=== PATIENT | female | born 1950 | race Caucasian/White ===

== ENCOUNTER 2019-03-19 23:26 | Inpatient (IN) | payer MEDICARE, OTHER ==
[2019-03-19] MEDS ORDERED: ALBUTEROL NEBULIZED 2.5 MG/3 ML INHALATION STA (23:48)
[2019-03-19] MEDS ORDERED: SODIUM CHLORIDE 0.9% 1,000 ML IV STA (23:48)
[2019-03-19] MEDS ORDERED: methylPREDNISolone SOD SUCCI 125 MG/2 ML VIAL IV STA (23:48)
[2019-03-19] MEDS ORDERED: IPRATROPIUM 0.5 MG/2.5 ML NEBU INHALATION STA (23:48)
--- NOTE | 2019-03-20 00:07 | XR ---
EXAMINATION TYPE: XR chest 1V portable DATE OF EXAM: 03/19/2019 COMPARISON: NONE HISTORY: Short of breath TECHNIQUE: FINDINGS: Heart is enlarged. There is pulmonary vascular congestion. There is slight blunting of the costophrenic angles. IMPRESSION: Mild congestive heart failure. Atheromatous aorta.
[2019-03-20 00:11] LABS: Anisocytosis Slight; HGB 12.4 gm/dL (11.4-16.0); Hypochromasia Slight; MCH 29.1 pg (25.0-35.0); MCHC 31.9 g/dL (31.0-37.0); Mean Platelet Volume 7.4; Platelet Count 123 k/uL (150-450); RBC 4.28 m/uL (3.80-5.40); RDW 16.6 % (11.5-15.5); WBC 9.8 k/uL (3.8-10.6)
--- NOTE | 2019-03-20 00:18 | ED ---
SOB HPI - General Chief Complaint: Shortness of Breath Stated Complaint: SOB Time Seen by Provider: 03/19/19 23:28 Source: patient, EMS, RN notes reviewed, old records reviewed Mode of arrival: EMS - History of Present Illness Initial Comments: This is a 68-year-old female is a poor story presents with family members over concern for activity at home. They did find patient to have low oxygen per EMS when EMS to arrive, daughter lives the patient states patient was not acting appropriately. Patient is a poor historian history obtained from EMS patient's family MD Complaint: shortness of breath, cough, "asthma attack", anxiety -: minutes(s) Severity: severe Severity scale (1-10): 10 Consistency: constant Improves With: nothing Worsens With: nothing Known History Of: COPD, congestive heart failure, recurrent pneumonia Context: recent URI Associated Symptoms: cough, sputum production, palpitations, syncope Treatments Prior to Arrival: none - Related Data Home Medications Medication Instructions Recorded Confirmed ALPRAZolam [Xanax] 0.25 mg PO TID 09/20/14 03/20/19 Albuterol Inhaler [Ventolin 2 puff INHALATION RT-Q6H PRN 09/20/14 03/20/19 Inhaler] Budesonide-Formot 160-4.5 Mcg 2 puff INHALATION RT-BID 09/20/14 03/20/19 [Symbicort 160-4.5 Mcg Inhaler] Losartan Potassium [Cozaar] 50 mg PO DAILY 09/20/14 03/20/19 Albuterol Nebulized [Ventolin 2.5 mg INHALATION RT-QID PRN 03/20/19 03/20/19 Nebulized] Atorvastatin [Lipitor] 40 mg PO DAILY 03/20/19 03/20/19 Fluticasone Nasal [place] [Flonase 1 spray EA NOSTRIL BID 03/20/19 03/20/19 Nasal [place]] Furosemide [Lasix] 40 mg PO BID 03/20/19 03/20/19 Gabapentin 1,200 mg PO BID 03/20/19 03/20/19 Insulin Glargine,Hum.rec.anlog 42 unit SQ BID 03/20/19 03/20/19 [Basaglar Kwikpen U-100] Levothyroxine Sodium 100 mcg PO DAILY 03/20/19 03/20/19 Metoprolol Succinate [Toprol XL] 200 mg PO DAILY 03/20/19 03/20/19 Multivitamins, Thera [Multivitamin 1 tab PO DAILY 03/20/19 03/20/19 (formulary)] Potassium Chloride ER [K-Dur 20] 20 meq PO DAILY 03/20/19 03/20/19 Rivaroxaban [Xarelto] 20 mg PO DAILY 03/20/19 03/20/19 Tafinlar 75mg Cap 150 mg PO BID 03/20/19 03/20/19 Trametinib Dimethyl Sulfoxide 2 mg PO DAILY 03/20/19 03/20/19 [Mekinist] Umeclidinium [place] [Incruse 1 puff INHALATION RT-DAILY 03/20/19 03/20/19 Ellipta] metFORMIN HCL 1,000 mg PO BID 03/20/19 03/20/19 Allergies Allergy/AdvReac Type Severity Reaction Status Date / Time No Known Allergies Allergy Verified 03/20/19 10:15 Review of Systems ROS Statement: Those systems with pertinent positive or pertinent negative responses have been documented in the HPI. ROS Other: All systems not noted in ROS Statement are negative. Past Medical History Past Medical History: COPD, Diabetes Mellitus, Hypertension, Thyroid Disorder Additional Past Medical History / Comment(s): myeloma- targeted chemo, immunotherapy, Graves dx History of Any Multi-Drug Resistant Organisms: None Reported Past Surgical History: Tubal Ligation Additional Past Surgical History / Comment(s): removal of melanoma x2 Past Psychological History: No Psychological Hx Reported Smoking Status: Former smoker Past Alcohol Use History: None Reported Past Drug Use History: None Reported General Exam General appearance: alert, in no apparent distress Head exam: Present: atraumatic, normocephalic, normal inspection Eye exam: Present: normal appearance, PERRL, EOMI. Absent: scleral icterus, conjunctival injection, periorbital swelling ENT exam: Present: normal exam, mucous membranes moist Neck exam: Present: normal inspection. Absent: tenderness, meningismus, lymphadenopathy Respiratory exam: Present: respiratory distress, wheezes, accessory muscle use, decreased breath sounds, prolonged expiratory. Absent: rales, rhonchi, stridor Cardiovascular Exam: Present: regular rate, normal rhythm, normal heart sounds. Absent: systolic murmur, diastolic murmur, rubs, gallop, clicks GI/Abdominal exam: Present: soft, normal bowel sounds. Absent: distended, tenderness, guarding, rebound, rigid Extremities exam: Present: normal inspection, full ROM, normal capillary refill. Absent: tenderness, pedal edema, joint swelling, calf tenderness Back exam: Present: normal inspection Neurological exam: Present: alert, oriented X3, CN II-XII intact Psychiatric exam: Present: normal affect, normal mood Skin exam: Present: warm, dry, intact, normal color. Absent: rash Course Vital Signs 03/19/19 03/19/19 03/20/19 23:34 23:40 00:03 Temperature 98.5 F Pulse Rate 100 86 Respiratory 26 H 26 H Rate Blood Pressure 101/62 O2 Sat by Pulse 90 L Oximetry 03/20/19 03/20/19 00:18 00:43 Temperature Pulse Rate 102 H 99 Respiratory Rate Blood Pressure O2 Sat by Pulse Oximetry - Reevaluation(s) Reevaluation #1: Medical records reviewed patient is improved here with IV hydration fluid resuscitation, breathing treatments Patient remains poor historian - Consultations Consultation #1: spoke w Dr Viet bhatti for admission Medical Decision Making - Medical Decision Making 68 female to the ER for evaluation significant shortness of breath. Pt also with confusion, and Weakness hypoxia with COPD and CHF. Will admit for diuresis breathing treatments monitoring of cardiopulmonary status - Lab Data Result diagrams: 03/22/19 07:13 03/22/19 07:13 Lab Results 03/19/19 03/20/19 03/20/19 Range/Units 10:07 00:00 00:00 WBC 9.8 (3.8-10.6) k/uL RBC 4.28 (3.80-5.40) m/uL Hgb 12.4 (11.4-16.0) gm/dL Hct 39.0 (34.0-46.0) % MCV 91.0 (80.0-100.0) fL MCH 29.1 (25.0-35.0) pg MCHC 31.9 (31.0-37.0) g/dL RDW 16.6 H (11.5-15.5) % Plt Count 123 L (150-450) k/uL Neutrophils % (Manual) 74 % Band Neutrophils % 22 % Lymphocytes % (Manual) 2 % Monocytes % (Manual) 2 % Neutrophils # (Manual) 9.40 H (1.3-7.7) k/uL Lymphocytes # (Manual) 0.20 L (1.0-4.8) k/uL Monocytes # (Manual) 0.20 (0-1.0) k/uL Nucleated RBCs 0 (0-0) /100 WBC Manual Slide Review Performed Hypochromasia Slight Anisocytosis Slight PT (9.0-12.0) sec INR (<1.2) APTT (22.0-30.0) sec Sodium 136 L (137-145) mmol/L Potassium 3.5 (3.5-5.1) mmol/L Chloride 98 (98-107) mmol/L Carbon Dioxide 32 H (22-30) mmol/L Anion Gap 6 mmol/L BUN 29 H (7-17) mg/dL Creatinine 0.90 (0.52-1.04) mg/dL Est GFR (CKD-EPI)AfAm 77 (>60 ml/min/1.73 sqM) Est GFR (CKD-EPI)NonAf 67 (>60 ml/min/1.73 sqM) Glucose 320 H (74-99) mg/dL Calcium 8.7 (8.4-10.2) mg/dL Magnesium 1.2 L (1.6-2.3) mg/dL Total Bilirubin 0.5 (0.2-1.3) mg/dL AST 35 (14-36) U/L ALT 25 (4-34) U/L Alkaline Phosphatase 59 (38-126) U/L Troponin I (0.000-0.034) ng/mL NT-Pro-B Natriuret Pep pg/mL Total Protein 5.8 L (6.3-8.2) g/dL Albumin 3.2 L (3.5-5.0) g/dL Urine Opiates Screen Not Detected (NotDetected) Ur Oxycodone Screen Not Detected (NotDetected) Urine Methadone Screen Not Detected (NotDetected) Ur Propoxyphene Screen Not Detected (NotDetected) Ur Barbiturates Screen Not Detected (NotDetected) U Tricyclic Antidepress Not Detected (NotDetected) Ur Phencyclidine Scrn Not Detected (NotDetected) Ur Amphetamines Screen Not Detected (NotDetected) U Methamphetamines Scrn Not Detected (NotDetected) U Benzodiazepines Scrn Not Detected (NotDetected) Urine Cocaine Screen Not Detected (NotDetected) U Marijuana (THC) Screen Not Detected (NotDetected) 03/20/19 03/20/19 03/20/19 Range/Units 00:00 00:00 00:00 WBC (3.8-10.6) k/uL RBC (3.80-5.40) m/uL Hgb (11.4-16.0) gm/dL Hct (34.0-46.0) % MCV (80.0-100.0) fL MCH (25.0-35.0) pg MCHC (31.0-37.0) g/dL RDW (11.5-15.5) % Plt Count (150-450) k/uL Neutrophils % (Manual) % Band Neutrophils % % Lymphocytes % (Manual) % Monocytes % (Manual) % Neutrophils # (Manual) (1.3-7.7) k/uL Lymphocytes # (Manual) (1.0-4.8) k/uL Monocytes # (Manual) (0-1.0) k/uL Nucleated RBCs (0-0) /100 WBC Manual Slide Review Hypochromasia Anisocytosis PT 11.0 (9.0-12.0) sec INR 1.1 (<1.2) APTT 24.2 (22.0-30.0) sec Sodium (137-145) mmol/L Potassium (3.5-5.1) mmol/L Chloride (98-107) mmol/L Carbon Dioxide (22-30) mmol/L Anion Gap mmol/L BUN (7-17) mg/dL Creatinine (0.52-1.04) mg/dL Est GFR (CKD-EPI)AfAm (>60 ml/min/1.73 sqM) Est GFR (CKD-EPI)NonAf (>60 ml/min/1.73 sqM) Glucose (74-99) mg/dL Calcium (8.4-10.2) mg/dL Magnesium (1.6-2.3) mg/dL Total Bilirubin (0.2-1.3) mg/dL AST (14-36) U/L ALT (4-34) U/L Alkaline Phosphatase (38-126) U/L Troponin I <0.012 (0.000-0.034) ng/mL NT-Pro-B Natriuret Pep 920 pg/mL Total Protein (6.3-8.2) g/dL Albumin (3.5-5.0) g/dL Urine Opiates Screen (NotDetected) Ur Oxycodone Screen (NotDetected) Urine Methadone Screen (NotDetected) Ur Propoxyphene Screen (NotDetected) Ur Barbiturates Screen (NotDetected) U Tricyclic Antidepress (NotDetected) Ur Phencyclidine Scrn (NotDetected) Ur Amphetamines Screen (NotDetected) U Methamphetamines Scrn (NotDetected) U Benzodiazepines Scrn (NotDetected) Urine Cocaine Screen (NotDetected) U Marijuana (THC) Screen (NotDetected) - EKG Data -: EKG Interpreted by Me (EKG shows A. fib rate of 113, QRS 90, QTC 477) - Radiology Data Radiology results: report reviewed (Chest x-ray does show CHF), image reviewed Critical Care Time Critical Care Time: Yes Total Critical Care Time: 31 Disposition Clinical Impression: Acute exacerbation of chronic obstructive pulmonary disease, Acute pulmonary edema, Congestive heart failure, Hypoxia Disposition: ADMITTED IP TO THIS HOSP Condition: Fair Is patient prescribed a controlled substance at d/c from ED?: No
[2019-03-20 00:21] LABS: Albumin 3.2 g/dL (3.5-5.0); Calcium 8.7 mg/dL (8.4-10.2); Magnesium 1.2 mg/dL (1.6-2.3); Potassium 3.5 mmol/L (3.5-5.1); Total Bilirubin 0.5 mg/dL (0.2-1.3); Total Protein 5.8 g/dL (6.3-8.2)
[2019-03-20 00:22] LABS: INR 1.1 (<1.2); Partial Thromboplastin Time 24.2 sec (22.0-30.0)
[2019-03-20 00:35] LABS: Band Neutrophils % 22 %; Neutrophils % (M) 74 %; Nucleated Red Blood Cells 0 /100 WBC (0-0); Total Cells Counted 100
[2019-03-20] MEDS ORDERED: IPRATROPIUM-ALBUTEROL 3 ML NEB INHALATION PRN (00:44)
[2019-03-20] MEDS: FUROSEMIDE 10 MG/ML 4 ML VIAL IV SCH ×2 (01:15→15:38)
[2019-03-20] MEDS: methylPREDNISolone SOD SUCCI 125 MG/2 ML VIAL IV SCH ×2 (05:49→12:23)
[2019-03-20] MEDS: ALBUTEROL NEBULIZED 2.5 MG/3 ML INHALATION SCH ×5 (08:04→20:37)
[2019-03-20] MEDS: SODIUM CHLORIDE 0.9% 1,000 ML IV SCH ×2 (08:33→12:26)
[2019-03-20] MEDS ORDERED: ENOXAPARIN 40 MG/0.4 ML SYRINGE SQ SCH (09:00)
[2019-03-20] MEDS ORDERED: SYMBICORT 160-4.5 MCG INHALER INHALATION SCH (11:00)
[2019-03-20] MEDS ORDERED: TAFINLAR 75 MG PO SCH (11:15)
[2019-03-20] MEDS ORDERED: Trametinib Dimethyl Sulfoxide [Mekinist] PO SCH (11:15)
[2019-03-20 11:42] LABS: Glucose,Whole Blood 454 mg/dL (75-99)
[2019-03-20 11:59] VITALS: BMI 43.9
[2019-03-20] MEDS: INSULIN ASPART (NovoLOG) 100 UNIT/ML VIAL SQ SCH ×3 (12:24→21:19)
[2019-03-20] MEDS: metFORMIN 500 MG TAB PO SCH ×2 (12:25→17:13)
[2019-03-20] MEDS: LOSARTAN 50 MG TAB PO SCH (12:25)
[2019-03-20] MEDS: METOPROLOL SUCCINATE (ER) 100 MG TAB.ER.24H PO SCH (12:25)
[2019-03-20] MEDS: POTASSIUM CHLORIDE ER 20 MEQ TAB.ER PO SCH (12:26)
[2019-03-20] MEDS: ATORVASTATIN 40 MG TAB PO SCH (12:26)
[2019-03-20] MEDS: GABAPENTIN 400 MG CAP PO SCH ×2 (12:26→21:21)
[2019-03-20 13:09] LABS: Amphetamine Screen,Urine Not Detected (NotDetected); Barbiturate Screen,Urine Not Detected (NotDetected); Benzodiazepines Screen,Urine Not Detected (NotDetected); Cocaine Screen,Urine Not Detected (NotDetected); Methadone Screen, Urine Not Detected (NotDetected); Opiate Screen,Urine Not Detected (NotDetected); Oxycodone Screen, Urine Not Detected (NotDetected); Phencyclidine Screen,Urine Not Detected (NotDetected); Tricyclic Antidepressant,Urine Not Detected (NotDetected); Urn Cannabinoid Scrn Not Detected (NotDetected)
[2019-03-20] MEDS: INSULIN DETEMIR (LEVEMIR) 100 UNIT/ML SYR SQ SCH ×2 (14:22→21:22)
[2019-03-20] MEDS: TAFINLAR 75 MG PO SCH (15:36)
[2019-03-20] MEDS: RIVAROXABAN 20 MG TAB PO SCH (15:38)
--- NOTE | 2019-03-20 15:54 | P.HPIM ---
History of Present Illness H&P Date: 03/20/19 Chief Complaint: Acute confusion History of presenting complaint: This is a pleasant 68-year-old patient of Dr. Hank Lloyd. Most of the history is obtained by the daughter the bedside. 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 Patient has a diagnosis for 9 years with recent spread to the irene gs.. Patient is on medication for the same.. She follows with Dr. DAVILA at [facility]. Patient had taken out for lunch yesterday and left the patient at home at 4:45 PM. And she came home around 10:00 PM she found that the bathroom door was open and patient is oxygen nasal cannula lying on the floor. She came to the bedroom and found everything was helter-skelter. And patient was sitting in a T-shirt at the edge of the bed short of breath confused. Patient had complained of feeling warm and cold. She was without her oxygen. She also noticed that patient's right leg was somewhat red and tender. 911 was called. Patient still remained somewhat delirious. Tired. Review of systems: GEN.: Warm and chills EYES: None HEENT: None NECK: None RESPIRATORY: Short of breath CARDIOVASCULAR: Lower extremity edema GASTROINTESTINAL: None GENITOURINARY: None MUSCULOSKELETAL: Swelling and redness of the right lower extremity LYMPHATICS: None HEMATOLOGICAL: None PSYCHIATRY: Confused NEUROLOGICAL: None Past medical history to include: COPD, diabetes, hypertension, hypothyroid, Graves' disease, home oxygen 3 L, metastatic melanoma stage IV,-on targeted chemo and immunotherapy Social history: Patient smoked up to 3 packs a day for close to 30 years stopped about 14 years ago. Lives with her daughter. Family history: Reviewed, noncontributory to presentation Physical examination: VITAL SIGNS: 99.7, 101, 18, 97.59, 88% on room air GENERAL: BMI 43.9, laying in bed tired somewhat lethargic. EYES: Pupils equal. Conjunctiva normal. HEENT: External appearance of nose and ears normal, oral cavity grossly normal. NECK: JVD unable to assess; masses not palpable. HEART: First and second heart sounds are normal; edema present. LUNGS: Respiratory rate increased, decreased breath sounds. ABDOMEN: Soft, nontender, liver spleen not palpable, no masses palpable. PSYCH: [Lethargic able to answer occasional questions l EXTREMITIES: Right lower extremity below the knee down to the foot is red and tender increased local temperature. NEUROLOGICAL: Cranial nerves grossly intact; no facial asymmetry, power and sensation grossly intact. LYMPHATICS: No lymph nodes palpable in the axilla and neck INVESTIGATIONS, reviewed in the clinical context: White count 9.8 hemoglobin 12.4 platelets 123 potassium 3.5 bun 29 creatinine 0.90 Glucose 320 proBNP 920 Urine drug screen negative serum alcohol less than 10 EKG tracing personally reviewed by me-atrial fibrillation rate about 110 Chest x-ray film personally reviewed by me-bit underpenetrated questionable venous prominence Assessment: -Acute right lower extremity cellulitis below the knee -Acute metabolic encephalopathy likely from sepsis non- -Acute COPD exacerbation and an ex-smoker -Chronic hypoxic respiratory failure on 3 L oxygen at home -Metastatic stage IV melanoma, patient is on directed chemo and immunotherapy. Follow up with Dr. DAVILA at [facility] -Diabetes mellitus type 2, chronically on insulin, uncontrolled with hypoglycemia -Essential hypertension -Hypothyroid -Morbid obesity BMI 43.9 -Persistent atrial fibrillation with increased ventricular rate-Chronically on Xarelto Plan: Patient be started on IV clindamycin. Blood cultures should be sent off. Start the patient on nebulized bronchodilators inhaled steroids. Also IV Solu- Medrol. Accu-Cheks will be followed with sliding scale insulin. Oncology will be consulted. Patient's oncologist is Dr. Nicky Harris at [facility] telephone number [phone]. Care was discussed with the patient daughter the bedside question were answered. Cardiology also consulted. Past Medical History Past Medical History: COPD, Diabetes Mellitus, Hypertension, Thyroid Disorder Additional Past Medical History / Comment(s): myeloma- targeted chemo, immunotherapy, Graves dx History of Any Multi-Drug Resistant Organisms: None Reported Past Surgical History: Tubal Ligation Additional Past Surgical History / Comment(s): removal of melanoma x2 Past Psychological History: No Psychological Hx Reported Smoking Status: Former smoker Past Alcohol Use History: None Reported Past Drug Use History: None Reported Medications and Allergies Home Medications Medication Instructions Recorded Confirmed Type ALPRAZolam [Xanax] 0.25 mg PO TID 09/20/14 03/20/19 History Albuterol Inhaler [Ventolin 2 puff INHALATION RT-Q6H PRN 09/20/14 03/20/19 History Inhaler] Budesonide-Formot 160-4.5 Mcg 2 puff INHALATION RT-BID 09/20/14 03/20/19 History [Symbicort 160-4.5 Mcg Inhaler] Losartan Potassium [Cozaar] 50 mg PO DAILY 09/20/14 03/20/19 History Albuterol Nebulized [Ventolin 2.5 mg INHALATION RT-QID PRN 03/20/19 03/20/19 History Nebulized] Atorvastatin [Lipitor] 40 mg PO DAILY 03/20/19 03/20/19 History Fluticasone Nasal [place] [Flonase 1 spray EA NOSTRIL BID 03/20/19 03/20/19 History Nasal [place]] Furosemide [Lasix] 40 mg PO BID 03/20/19 03/20/19 History Gabapentin 1,200 mg PO BID 03/20/19 03/20/19 History Insulin Glargine,Hum.rec.anlog 42 unit SQ BID 03/20/19 03/20/19 History [[place]uan[place] U-100] Levothyroxine Sodium 100 mcg PO DAILY 03/20/19 03/20/19 History Metoprolol Succinate [Toprol XL] 200 mg PO DAILY 03/20/19 03/20/19 History Multivitamins, Thera [Multivitamin 1 tab PO DAILY 03/20/19 03/20/19 History (formulary)] Potassium Chloride ER [K-Dur 20] 20 meq PO DAILY 03/20/19 03/20/19 History Rivaroxaban [Xarelto] 20 mg PO DAILY 03/20/19 03/20/19 History Tafinlar 75mg Cap 150 mg PO BID 03/20/19 03/20/19 History Trametinib Dimethyl Sulfoxide 2 mg PO DAILY 03/20/19 03/20/19 History [Mekinist] Umeclidinium [place] [Incruse 1 puff INHALATION RT-DAILY 03/20/19 03/20/19 History Ellipta] metFORMIN HCL 1,000 mg PO BID 03/20/19 03/20/19 History Allergies Allergy/AdvReac Type Severity Reaction Status Date / Time No Known Allergies Allergy Verified 03/20/19 10:15 Physical Exam Vitals: Vital Signs Temp Pulse Pulse Resp BP BP Pulse Ox 03/20/19 08:15 76 03/20/19 08:04 70 88 L 03/20/19 08:00 17 03/20/19 07:00 98.3 F 96 17 121/53 90 L 03/20/19 02:00 18 03/20/19 01:49 99.7 F H 101 H 18 97/59 88 L 03/20/19 00:43 99 03/20/19 00:18 102 H 03/20/19 00:03 86 03/19/19 23:40 26 H 03/19/19 23:34 98.5 F 100 26 H 101/62 90 L Intake and Output 03/19/19 03/20/19 03/20/19 22:59 06:59 14:59 Other: Voiding Method Toilet # Voids 1 Weight 108.862 kg Results CBC & Chem 7: 03/20/19 00:00 03/20/19 00:00 Labs: Abnormal Lab Results - Last 24 Hours (Table) 03/20/19 03/20/19 Range/Units 00:00 00:00 RDW 16.6 H (11.5-15.5) % Plt Count 123 L (150-450) k/uL Neutrophils # (Manual) 9.40 H (1.3-7.7) k/uL Lymphocytes # (Manual) 0.20 L (1.0-4.8) k/uL Sodium 136 L (137-145) mmol/L Carbon Dioxide 32 H (22-30) mmol/L BUN 29 H (7-17) mg/dL Glucose 320 H (74-99) mg/dL Magnesium 1.2 L (1.6-2.3) mg/dL Total Protein 5.8 L (6.3-8.2) g/dL Albumin 3.2 L (3.5-5.0) g/dL Thrombosis Risk Factor Assmnt - Choose All That Apply Each Factor Represents 1 point: Heart failure (<1month), Obesity (BMI >25) Each Risk Factor Represents 2 Points: Age 61-74 years Thrombosis Risk Factor Assessment Total Risk Factor Score: 4 Thrombosis Risk Factor Assessment Level: Moderate Risk
[2019-03-20] MEDS ORDERED: FUROSEMIDE 10 MG/ML 4 ML VIAL IV SCH (16:00)
[2019-03-20 16:51] LABS: Glucose,Whole Blood 275 mg/dL (75-99)
[2019-03-20] MEDS: CLINDAMYCIN 300 MG in DEXTROSE 5% IN WATER 50 ML IVPB SCH ×4 (16:58→23:45)
[2019-03-20 18:24] LABS: Glucose,Whole Blood 343 mg/dL (75-99)
--- NOTE | 2019-03-20 19:01 | P.CRDCN ---
History of Present Illness Consult date: 03/20/19 History of present illness: This is a 68-year-old female with history of metastatic melanoma stage IV in the right leg with metastasis to the lungs. Patient is being followed at [facility]. Patient also has history of congestive heart failure and has been on medications. Patient was diagnosed to have melanoma about 9 years ago with recent metastasis to the lungs. Patient was brought in by the family because patient was found to be confused and having difficulty breathing. Patient also complained of being feeling warm and cold. And the right leg was swollen and tender. Patient's chest x-ray showed evidence of mild congestive heart failure. EKG showed atrial fibrillation with moderately rapid ventricular size is response. Patient is admitted to the hospital and is started on IV diuretics. Patient is also on steroids. Denies any chest pain. At this point we'll continue current medical therapy. Get an echocardiogram. Further recommendations depend upon the clinical course Review of Systems As per the chart Past Medical History Past Medical History: COPD, Diabetes Mellitus, Hypertension, Thyroid Disorder Additional Past Medical History / Comment(s): myeloma- targeted chemo, immunotherapy, Graves dx History of Any Multi-Drug Resistant Organisms: None Reported Past Surgical History: Tubal Ligation Additional Past Surgical History / Comment(s): removal of melanoma x2 Past Psychological History: No Psychological Hx Reported Smoking Status: Former smoker Past Alcohol Use History: None Reported Past Drug Use History: None Reported Medications and Allergies Home Medications Medication Instructions Recorded Confirmed Type ALPRAZolam [Xanax] 0.25 mg PO TID 09/20/14 03/20/19 History Albuterol Inhaler [Ventolin 2 puff INHALATION RT-Q6H PRN 09/20/14 03/20/19 History Inhaler] Budesonide-Formot 160-4.5 Mcg 2 puff INHALATION RT-BID 09/20/14 03/20/19 History [Symbicort 160-4.5 Mcg Inhaler] Losartan Potassium [Cozaar] 50 mg PO DAILY 09/20/14 03/20/19 History Albuterol Nebulized [Ventolin 2.5 mg INHALATION RT-QID PRN 03/20/19 03/20/19 History Nebulized] Atorvastatin [Lipitor] 40 mg PO DAILY 03/20/19 03/20/19 History Fluticasone Nasal [place] [Flonase 1 spray EA NOSTRIL BID 03/20/19 03/20/19 History Nasal [place]] Furosemide [Lasix] 40 mg PO BID 03/20/19 03/20/19 History Gabapentin 1,200 mg PO BID 03/20/19 03/20/19 History Insulin Glargine,Hum.rec.anlog 42 unit SQ BID 03/20/19 03/20/19 History [Basaglar Kwikpen U-100] Levothyroxine Sodium 100 mcg PO DAILY 03/20/19 03/20/19 History Metoprolol Succinate [Toprol XL] 200 mg PO DAILY 03/20/19 03/20/19 History Multivitamins, Thera [Multivitamin 1 tab PO DAILY 03/20/19 03/20/19 History (formulary)] Potassium Chloride ER [K-Dur 20] 20 meq PO DAILY 03/20/19 03/20/19 History Rivaroxaban [Xarelto] 20 mg PO DAILY 03/20/19 03/20/19 History Tafinlar 75mg Cap 150 mg PO BID 03/20/19 03/20/19 History Trametinib Dimethyl Sulfoxide 2 mg PO DAILY 03/20/19 03/20/19 History [Mekinist] Umeclidinium Topmost [Incruse 1 puff INHALATION RT-DAILY 03/20/19 03/20/19 History Ellipta] metFORMIN HCL 1,000 mg PO BID 03/20/19 03/20/19 History Allergies Allergy/AdvReac Type Severity Reaction Status Date / Time No Known Allergies Allergy Verified 03/20/19 10:15 Physical Exam Vitals: Vital Signs Temp Pulse Pulse Resp BP BP Pulse Ox 03/20/19 16:00 17 03/20/19 15:31 87 03/20/19 15:17 85 03/20/19 15:00 97.8 F 84 16 113/55 88 L 03/20/19 11:24 88 03/20/19 11:17 80 03/20/19 08:15 76 03/20/19 08:04 70 88 L 03/20/19 08:00 17 03/20/19 07:00 98.3 F 96 17 121/53 90 L 03/20/19 02:00 18 03/20/19 01:49 99.7 F H 101 H 18 97/59 88 L 03/20/19 00:43 99 03/20/19 00:18 102 H 03/20/19 00:03 86 03/19/19 23:40 26 H 03/19/19 23:34 98.5 F 100 26 H 101/62 90 L Intake and Output 03/20/19 03/20/19 03/20/19 06:59 14:59 22:59 Other: Voiding Method Toilet # Voids 1 1 Weight 108.862 kg 108.862 kg GENERAL EXAM: Patient is alert and oriented and doesn't appear to be in any acute distress HEENT: Normocephalic. Normal reaction of pupils, equal size, normal range of extraocular motion. No erythema or exudates in the throat. NECK: No masses, no nuchal rigidity. CHEST: No chest wall deformity. LUNGS: Show some expressed or rhonchi wheezing and also diminished breath sounds HEART: S1 and S2 normal with no audible mumurs or gallops. Irregular rhythm ABDOMEN: No hepatosplenomegaly, normal bowel sounds, no guarding or rigidity. SKIN: No rashes CENTRAL NERVOUS SYSTEM: No focal deficits. EXTREMITIES: Right leg is swollen and tender with erythema Results 03/20/19 00:00 03/20/19 00:00 Cardiac Enzymes 03/20/19 03/20/19 Range/Units 00:00 00:00 AST 35 (14-36) U/L Troponin I <0.012 (0.000-0.034) ng/mL Coagulation 03/20/19 Range/Units 00:00 PT 11.0 (9.0-12.0) sec APTT 24.2 (22.0-30.0) sec CBC 03/20/19 Range/Units 00:00 WBC 9.8 (3.8-10.6) k/uL RBC 4.28 (3.80-5.40) m/uL Hgb 12.4 (11.4-16.0) gm/dL Hct 39.0 (34.0-46.0) % Plt Count 123 L (150-450) k/uL Comprehensive Metabolic Panel 03/20/19 Range/Units 00:00 Sodium 136 L (137-145) mmol/L Potassium 3.5 (3.5-5.1) mmol/L Chloride 98 (98-107) mmol/L Carbon Dioxide 32 H (22-30) mmol/L BUN 29 H (7-17) mg/dL Creatinine 0.90 (0.52-1.04) mg/dL Glucose 320 H (74-99) mg/dL Calcium 8.7 (8.4-10.2) mg/dL AST 35 (14-36) U/L ALT 25 (4-34) U/L Alkaline Phosphatase 59 (38-126) U/L Total Protein 5.8 L (6.3-8.2) g/dL Albumin 3.2 L (3.5-5.0) g/dL Current Medications Generic Name Dose Route Start Last Admin Trade Name Freq PRN Reason Stop Dose Admin Albuterol Sulfate 2.5 mg 03/20/19 08:00 03/20/19 15:31 Ventolin Nebulized INHALATION Not Given RT-QID MARCO Albuterol/Ipratropium 3 ml 03/20/19 00:44 03/20/19 15:17 Duoneb 0.5 Mg-3 Mg/3 Ml Soln INHALATION 3 ml RT-Q4H PRN Administration Shortness Of Breath Or Wheezing Alprazolam 0.25 mg 03/20/19 11:00 Xanax PO TID PRN Anxiety Atorvastatin Calcium 40 mg 03/20/19 11:15 03/20/19 12:26 Lipitor PO 40 mg DAILY MARCO Administration Budesonide 1 mg 03/20/19 20:00 Pulmicort INHALATION RT-BID [facility] Formoterol Fumarate 20 mcg 03/20/19 20:00 Perforomist INHALATION RT-BID [facility] Furosemide 40 mg 03/21/19 04:00 Lasix IV Q12H [facility] Gabapentin 1,200 mg 03/20/19 11:15 03/20/19 12:26 Neurontin PO 1,200 mg BID MARCO Administration Clindamycin Phosphate 300 mg/ 52 mls @ 50 mls/hr 03/20/19 16:00 03/20/19 16:58 Dextrose/Water IVPB 50 mls/hr Q8HR [facility] Administration Insulin Aspart 0 unit 03/20/19 12:30 03/20/19 17:13 Novolog SQ 6 unit ACHS [facility] Administration Protocol Insulin Detemir 42 unit 03/20/19 11:15 03/20/19 14:22 Levemir SQ 42 unit BID@0700,2100 [facility] Administration Ipratropium Topmost 0.5 mg 03/21/19 08:00 Atrovent Nebulized INHALATION RT-QID [facility] Losartan Potassium 50 mg 03/20/19 11:15 03/20/19 12:25 Cozaar PO 50 mg DAILY [facility] Administration Metformin HCl 1,000 mg 03/20/19 11:15 03/20/19 17:13 Glucophage PO 1,000 mg BID-W/MEALS [facility] Administration Methylprednisolone Sodium Succinate 40 mg 03/20/19 21:00 Solu-Medrol IV Q12HR [facility] Metoprolol Succinate 200 mg 03/20/19 11:15 03/20/19 12:25 Toprol Xl PO 200 mg DAILY [facility] Administration Tafinlar 75mg Cap 150 mg 03/20/19 13:31 03/20/19 15:36 PO 150 mg AC-BID [facility] Administration Trametinib Dimethyl 2 mg 03/20/19 13:33 Sulfoxide [Mekinist] PO AC-BRKFST [facility] Potassium Chloride 20 meq 03/20/19 11:15 03/20/19 12:26 K-Dur 20 PO 20 meq DAILY [facility] Administration Rivaroxaban 20 mg 03/20/19 11:15 03/20/19 15:38 Xarelto PO 20 mg DAILY [facility] Administration Intake and Output 03/20/19 03/20/19 03/20/19 06:59 14:59 22:59 Other: Voiding Method Toilet # Voids 1 1 Weight 108.862 kg 108.862 kg Patient Weight 03/21/19 06:59 Weight 108.862 kg 03/20/19 00:00 03/20/19 00:00 EKG Interpretations (text) Atrial fibrillation with moderate rapid ventricular response Assessment and Plan (1) Acute CHF Current Visit: Yes Status: Acute Code(s): I50.9 - HEART FAILURE, UNSPECIFIED SNOMED Code(s): 49085140 (2) Acute exacerbation of chronic obstructive pulmonary disease Current Visit: Yes Status: Acute Code(s): J44.1 - CHRONIC OBSTRUCTIVE PULMONARY DISEASE W (ACUTE) EXACERBATION SNOMED Code(s): 476728622 (3) Metastatic melanoma Current Visit: Yes Status: Acute Code(s): C79.9 - SECONDARY MALIGNANT NEOPLASM OF UNSPECIFIED SITE SNOMED Code(s): 746919211 (4) Atrial fibrillation Current Visit: Yes Status: Acute Code(s): I48.91 - UNSPECIFIED ATRIAL FIBRIL LATION SNOMED Code(s): 03674387 Plan: Continue with diuretics IV diuretic therapy with and also steroids. We'll continue with PROSPER inhibitor and beta blockers. Continue with the anticoagulation. We'll obtain an echocardiogram. Further recommendations depend upon the findings on the echocardiogram
[2019-03-20] MEDS: BUDESONIDE 1 MG/2 ML NEBU INHALATION SCH (20:37)
[2019-03-20] MEDS: FORMOTEROL FUMARATE 20 MCG/2 ML NEBU INHALATION SCH (20:37)
[2019-03-20] MEDS: IPRATROPIUM 0.5 MG/2.5 ML NEBU INHALATION SCH (20:38)
[2019-03-20 20:48] LABS: Glucose,Whole Blood 242 mg/dL (75-99)
[2019-03-20] MEDS: methylPREDNISolone SOD SUCCI 40 MG/ML 1 ML VIAL IV SCH (21:24)
[2019-03-21] MEDS: FUROSEMIDE 10 MG/ML 4 ML VIAL IV SCH ×2 (03:41→18:38)
[2019-03-21] MEDS: ACETAMINOPHEN TAB 325 MG TAB PO PRN (04:10)
--- NOTE | 2019-03-21 05:00 | XR ---
EXAM: XR Chest, 2 Views CLINICAL HISTORY: ITS.REASON XR Reason: high temp TECHNIQUE: Frontal and lateral views of the chest. COMPARISON: 03/19/2019 IMPRESSION: Cardiomegaly. Mild bilateral pleural effusions and pulmonary edema. Improved from prior.
[2019-03-21 06:55] LABS: Glucose,Whole Blood 200 mg/dL (75-99)
[2019-03-21] MEDS: INSULIN ASPART (NovoLOG) 100 UNIT/ML VIAL SQ SCH ×4 (07:45→20:29)
[2019-03-21] MEDS: INSULIN DETEMIR (LEVEMIR) 100 UNIT/ML SYR SQ SCH ×2 (07:45→20:06)
[2019-03-21] MEDS: CLINDAMYCIN 300 MG in DEXTROSE 5% IN WATER 50 ML IVPB SCH ×4 (07:46→17:23)
[2019-03-21] MEDS: metFORMIN 500 MG TAB PO SCH ×2 (07:54→17:23)
[2019-03-21] MEDS: RIVAROXABAN 20 MG TAB PO SCH (07:54)
[2019-03-21] MEDS: METOPROLOL SUCCINATE (ER) 100 MG TAB.ER.24H PO SCH (07:55)
[2019-03-21] MEDS: GABAPENTIN 400 MG CAP PO SCH ×2 (07:55→20:06)
[2019-03-21] MEDS: ATORVASTATIN 40 MG TAB PO SCH (07:55)
[2019-03-21] MEDS: POTASSIUM CHLORIDE ER 20 MEQ TAB.ER PO SCH (07:56)
[2019-03-21] MEDS: FORMOTEROL FUMARATE 20 MCG/2 ML NEBU INHALATION SCH ×2 (09:04→19:41)
[2019-03-21] MEDS: BUDESONIDE 1 MG/2 ML NEBU INHALATION SCH ×2 (09:04→19:41)
[2019-03-21] MEDS: ALBUTEROL NEBULIZED 2.5 MG/3 ML INHALATION SCH ×4 (09:04→19:41)
[2019-03-21] MEDS: IPRATROPIUM 0.5 MG/2.5 ML NEBU INHALATION SCH ×4 (09:04→19:41)
[2019-03-21] MEDS: LOSARTAN 50 MG TAB PO SCH (09:57)
[2019-03-21] MEDS: TAFINLAR 75 MG PO SCH ×2 (10:39→20:01)
[2019-03-21] MEDS: methylPREDNISolone SOD SUCCI 40 MG/ML 1 ML VIAL IV SCH ×2 (10:39→20:09)
[2019-03-21] MEDS: Trametinib Dimethyl Sulfoxide [Mekinist] PO SCH (10:39)
[2019-03-21 12:09] LABS: Glucose,Whole Blood 270 mg/dL (75-99)
--- NOTE | 2019-03-21 15:18 | US ---
EXAMINATION TYPE: US venous doppler duplex LE RT DATE OF EXAM: 03/21/2019 3:08 PM COMPARISON: NONE CLINICAL HISTORY: swelling r/o DVT. SIDE PERFORMED: Right TECHNIQUE: The lower extremity deep venous system is examined utilizing real time linear array sonog jose guadalupe with graded compression, doppler sonography and color-flow sonography. VESSELS IMAGED: External Iliac Vein (EIV) Common Femoral Vein Deep Femoral Vein Greater Saphenous Vein * Femoral Vein Popliteal Vein Small Saphenous Vein * Proximal Calf Veins (* superficial vessels) Gross morbid obesity. Technically difficult, limited exam Right Leg: Appears negative for DVT above knee, unable to visualize for compression views of femoral vein due to depth. Unable to properly asses popliteal vein due to body habitus. IMPRESSION: No acute deep venous thrombosis above the right knee, however the exam is nondiagnostic i n the popliteal vein and below due to patient body habitus and suboptimal and the femoral vein.
[2019-03-21 16:50] LABS: Glucose,Whole Blood 277 mg/dL (75-99)
--- NOTE | 2019-03-21 17:16 | P.PN ---
Subjective Progress Note Date: 03/21/19 This patient with history of a malignant melanoma, metastatic and also history of chronic atrial fibrillation, congestive heart failure was admitted to the hospital with complaints of increasing shortness of breath and also altered mental status. Patient also has a red swollen right leg. A chest x-ray showed evidence of congestive heart failure. Patient was treated with IV diuretics with improvement of her symptoms. Echocardiogram is pending. Clinically her lungs appeared to be clear. Her heart rate is controlled. We'll continue current medical therapy. We'll get an echocardiogram and previous records. Patient also had a venous duplex study Objective - Vital Signs Vital signs: Vital Signs Temp 98.4 F 03/21/19 15:07 Pulse 82 03/21/19 16:00 Resp 18 03/21/19 15:07 BP 107/64 03/21/19 15:07 Pulse Ox 92 L 03/21/19 15:51 Intake & Output 03/20/19 03/21/19 03/21/19 18:59 06:59 18:59 Intake Total 50 427 Output Total 350 Balance 50 77 Weight 108.862 kg 128 kg 128.3 kg Intake: Intake, IV Titration 50 Amount Clindamycin 300 mg In 50 Dextrose 5% in Water 50 ml @ 50 mls/hr IVPB Q8HR [facility] Rx#:[id number] Oral 427 Output: Urine 350 Other: Voiding Method Bedside Commode # Voids 1 0 - Exam GENERAL EXAM: Patient is alert and oriented and doesn't appear to be in any acute distress HEENT: Normocephalic. Normal reaction of pupils, equal size, normal range of extraocular motion. No erythema or exudates in the throat. NECK: No masses, no nuchal rigidity. CHEST: No chest wall deformity. LUNGS: Equal air entry with no crackles or wheeze. HEART: S1 and S2 normal with no audible mumurs or gallops. Regular rhythm, femorals equal on both sides.. ABDOMEN: No hepatosplenomegaly, normal bowel sounds, no guarding or rigidity. SKIN: No rashes CENTRAL NERVOUS SYSTEM: No focal deficits. EXTREMITIES: Right leg is swollen and erythematous - Labs CBC & Chem 7: 03/20/19 00:00 03/20/19 00:00 Labs: Abnormal Lab Results - Last 24 Hours (Table) 03/20/19 03/20/19 03/21/19 Range/Units 18:21 20:46 06:53 POC Glucose (mg/dL) 343 H 242 H 200 H (75-99) mg/dL 03/21/19 03/21/19 Range/Units 12:08 16:49 POC Glucose (mg/dL) 270 H 277 H (75-99) mg/dL Assessment and Plan (1) Acute CHF Current Visit: Yes Status: Acute Code(s): I50.9 - HEART FAILURE, UNSPECIFIED SNOMED Code(s): 08743537 (2) Acute exacerbation of chronic obstructive pulmonary disease Current Visit: Yes Status: Acute Code(s): J44.1 - CHRONIC OBSTRUCTIVE PULMONARY DISEASE W (ACUTE) EXACERBATION SNOMED Code(s): 578711985 (3) Metastatic melanoma Current Visit: Yes Status: Acute Code(s): C79.9 - SECONDARY MALIGNANT NEOPLASM OF UNSPECIFIED SITE SNOMED Code(s): 575196487 (4) Atrial fibrillation Current Visit: Yes Status: Acute Code(s): I48.91 - UNSPECIFIED ATRIAL FIBRILLATION SNOMED Code(s): 76719890 Plan: Patient seemed to be improving. She is less wheezy. Lungs appeared clear. He art is irregular. Patient is going to have an echocardiogram tomorrow. Meanwhile, continue current medical therapy
[2019-03-21 19:52] LABS: Appearance,Urine Clear (Clear); Bilirubin,Urine Negative (Negative); Blood,Urine Moderate (Negative); Color,Urine Yellow; Glucose,Urine (UA) Trace (Negative); Hyaline Casts,Urine 14 /lpf (0-2); Ketones,Urine Negative (Negative); Leukocyte Esterase,Urine Trace (Negative); Mucus,Urine Rare /hpf; Nitrite,Urine Negative (Negative); PH, Urine 5.5 (5.0-8.0); Protein,Urine 1+ (Negative); RBC,Urine 5 /hpf (0-5); Specific Gravity,Urine 1.021 (1.001-1.035); Squamous Epithelial Cell,Urine 5 /hpf (0-4); Urobilinogen,Urine <2.0 mg/dL (<2.0); WBC,Urine 7 /hpf (0-5)
[2019-03-21 20:03] LABS: Glucose,Whole Blood 314 mg/dL (75-99)
[2019-03-21] MEDS: ALPRAZolam 0.25 MG TAB PO PRN (20:28)
--- NOTE | 2019-03-21 21:41 | P.PN ---
Progress Note - Text Progress Note Date: 03/21/19 Chief Complaint: Acute confusion History of presenting complaint: This is a pleasant 68-year-old patient of Dr. Hank Lloyd. Most of the history is obtained by the daughter the bedside. 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 Patient has a diagnosis for 9 years with recent spread to the lungs.. Patient is on medication for the same.. She follows with Dr. DAVILA at [facility]. Patient had taken out for lunch yesterday and left the patient at home at 4:45 PM. And she came home around 10:00 PM she found that the bathroom door was open and patient is oxygen nasal cannula lying on the floor. She came to the bedroom and found everything was helter-skelter. And patient was sitting in a T-shirt at the edge of the bed short of breath confused. Patient had complained of feeling warm and cold. She was without her oxygen. She also noticed that patient's right leg was somewhat red and tender. 911 was called. Patient still remained somewhat delirious. Tired. Hospital course: Admitted with-acute right lower extremity cellulitis, acute metabolic encephalopathy, acute COPD exacerbation, atrial fibrillation with rapid ventricular rate. Started on IV clindamycin, bronchodilator steroids. Today-doing better. More awake more conversive. Right leg pain and redness swelling is going down. Feeling better. Did tolerate diet. Has been in and out of A. fib. 2 rate better controlled. Review of systems: Was done for constitutional, cardiovascular, GI, pulmonary. relevant finding as above Active Medications Acetaminophen (Tylenol Tab) 650 mg PO Q4HR PRN PRN Reason: Fever and/ or Pain Last Admin: 03/21/19 04:10 Dose: 650 mg Documented by: Albuterol Sulfate (Ventolin Nebulized) 2.5 mg INHALATION RT-QID [facility] Last Admin: 03/21/19 19:41 Dose: 2.5 mg Documented by: Albuterol/Ipratropium (Duoneb 0.5 Mg-3 Mg/3 Ml Soln) 3 ml INHALATION RT-Q4H PRN PRN Reason: Shortness Of Breath Or Wheezing Last Admin: 03/20/19 15:17 Dose: 3 ml Documented by: Alprazolam (Xanax) 0.25 mg PO TID PRN PRN Reason: Anxiety Last Admin: 03/21/19 20:28 Dose: 0.25 mg Documented by: Atorvastatin Calcium (Lipitor) 40 mg PO DAILY [facility] Last Admin: 03/21/19 07:55 Dose: 40 mg Documented by: Budesonide (Pulmicort) 1 mg INHALATION RT-BID [facility] Last Admin: 03/21/19 19:41 Dose: 1 mg Documented by: Formoterol Fumarate (Perforomist) 20 mcg INHALATION RT-BID [facility] Last Admin: 03/21/19 19:41 Dose: 20 mcg Documented by: Gabapentin (Neurontin) 1,200 mg PO BID [facility] Last Admin: 03/21/19 20:06 Dose: 1,200 mg Documented by: Cefazolin Sodium 2 gm/ Sodium (Chloride) 50 mls @ 100 mls/hr IVPB Q8HR [facility] Insulin Aspart (Novolog) 0 unit SQ ACHS [facility]; Protocol Last Admin: 03/21/19 20:29 Dose: 8 unit Documented by: Insulin Detemir (Levemir) 42 unit SQ BID@0700,2100 [facility] Last Admin: 03/21/19 20:06 Dose: 42 unit Documented by: Ipratropium [place] (Atrovent Nebulized) 0.5 mg INHALATION RT-QID [facility] Last Admin: 03/21/19 19:41 Dose: 0.5 mg Documented by: Losartan Potassium (Cozaar) 50 mg PO DAILY [facility] Last Admin: 03/21/19 09:57 Dose: Not Given Documented by: Metformin HCl (Glucophage) 1,000 mg PO BID-W/MEALS [facility] Last Admin: 03/21/19 17:23 Dose: 1,000 mg Documented by: Methylprednisolone Sodium Succinate (Solu-Medrol) 40 mg IV Q12HR [facility] Last Admin: 03/21/19 20:09 Dose: 40 mg Documented by: Metoprolol Succinate (Toprol Xl) 200 mg PO DAILY [facility] Last Admin: 03/21/19 07:55 Dose: 200 mg Documented by: Tafinlar 75mg Cap 150 mg PO AC-BID [facility] Last Admin: 03/21/19 20:01 Dose: 150 mg Documented by: Trametinib Dimethyl (Sulfoxide [Mekinist]) 2 mg PO AC-BRKFST [facility] Last Admin: 03/21/19 10:39 Dose: 2 mg Documented by: Potassium Chloride (K-Dur 20) 20 meq PO DAILY [facility] Last Admin: 03/21/19 07:56 Dose: 20 meq Documented by: Rivaroxaban (Xarelto) 20 mg PO DAILY [facility] Last Admin: 03/21/19 07:54 Dose: 20 mg Documented by: Physical examination: VITAL SIGNS: T-max 102.2, fever coming down, 69, 18, 107/64, 95% on 5 L GENERAL: Laying in bed, more awake and communicative EYES: Pupils equal. Conjunctiva normal. HEENT: External appearance of nose and ears normal, oral cavity grossly normal. NECK: JVD unable to assess; masses not palpable. HEART: First and second heart sounds are normal; edema present. LUNGS: Respiratory rate increased, decreased breath sounds. Less wheezing ABDOMEN: Soft, nontender, liver spleen not palpable, no masses palpable. PSYCH: AAO 3, anxious EXTREMITIES: Decreased redness and decreased local temperature of the right lower extremity INVESTIGATIONS, reviewed in the clinical context: Accu-Cheks noted White count 9.8 hemoglobin 12.4 platelets 123 potassium 3.5 bun 29 creatinine 0.90 Glucose 320 proBNP 920 Urine drug screen negative serum alcohol less than 10 EKG tracing personally reviewed by me-atrial fibrillation rate about 110 Chest x-ray film personally reviewed by me-bit underpenetrated questionable venous prominence Ultrasound Doppler-negative for DVT Assessment: -Acute right lower extremity cellulitis below the knee, causing sepsis, POA improving -Acute metabolic encephalopathy likely from sepsis, improving -Acute COPD exacerbation in an ex-smoker, improving -Chronic hypoxic respiratory failure on 3 L oxygen at home -Metastatic stage IV melanoma, patient is on directed chemo and immunotherapy. follows at [facility] -Diabetes mellitus type 2, chronically on insulin, uncontrolled with hyperglycemia -Essential hypertension -Hypothyroid -Morbid obesity BMI 43.9 -Persistent atrial fibrillation with increased ventricular rate on presentation,-Chronically on Xarelto Plan: Blood pressure started running low. Was called. IV Lasix was held. Continue with IV Ancef. looking much better. Eating well. Follow with cardiology, oncology and ID. Resume by mouth Lasix later. Repeat labs in the morning.
[2019-03-21] MEDS: FUROSEMIDE 40 MG TAB PO SCH (23:41)
[2019-03-22] MEDS: ACETAMINOPHEN TAB 325 MG TAB PO PRN (05:40)
[2019-03-22] MEDS: TAFINLAR 75 MG PO SCH ×2 (05:53→17:32)
[2019-03-22] MEDS: Trametinib Dimethyl Sulfoxide [Mekinist] PO SCH (05:57)
[2019-03-22 06:56] LABS: Glucose,Whole Blood 75 mg/dL (75-99)
[2019-03-22] MEDS: INSULIN ASPART (NovoLOG) 100 UNIT/ML VIAL SQ SCH ×4 (07:25→20:50)
[2019-03-22] MEDS: GABAPENTIN 400 MG CAP PO SCH ×2 (08:12→20:50)
[2019-03-22] MEDS: INSULIN DETEMIR (LEVEMIR) 100 UNIT/ML SYR SQ SCH ×2 (08:12→22:15)
[2019-03-22] MEDS: LOSARTAN 50 MG TAB PO SCH (08:12)
[2019-03-22] MEDS: ATORVASTATIN 40 MG TAB PO SCH (08:12)
[2019-03-22] MEDS: metFORMIN 500 MG TAB PO SCH ×2 (08:13→17:07)
[2019-03-22] MEDS: FUROSEMIDE 40 MG TAB PO SCH ×2 (08:13→17:34)
[2019-03-22] MEDS: ALPRAZolam 0.25 MG TAB PO PRN ×2 (08:26→22:15)
[2019-03-22] MEDS: METOPROLOL SUCCINATE (ER) 100 MG TAB.ER.24H PO SCH (08:26)
[2019-03-22] MEDS: BUDESONIDE 1 MG/2 ML NEBU INHALATION SCH ×2 (09:03→19:29)
[2019-03-22] MEDS: FORMOTEROL FUMARATE 20 MCG/2 ML NEBU INHALATION SCH ×2 (09:03→19:29)
[2019-03-22] MEDS: IPRATROPIUM-ALBUTEROL 3 ML NEB INHALATION SCH ×4 (09:03→19:29)
[2019-03-22] MEDS: RIVAROXABAN 20 MG TAB PO SCH (09:22)
[2019-03-22] MEDS: predniSONE 20 MG TAB PO SCH (09:22)
[2019-03-22] MEDS: POTASSIUM CHLORIDE ER 20 MEQ TAB.ER PO SCH (09:23)
[2019-03-22 09:27] LABS: Anisocytosis Slight; Basophils % (A) 0 %; Eosinophils # (A) 0.1 k/uL (0-0.7); Eosinophils % (A) 1 %; Hypochromasia Slight; Lymphocytes # (A) 0.6 k/uL (1.0-4.8); Lymphocytes % (A) 7 %; MCH 29.1 pg (25.0-35.0); MCHC 32.4 g/dL (31.0-37.0); MCV 89.9 fL (80.0-100.0); Mean Platelet Volume 8.8; Monocytes # (A) 0.3 k/uL (0-1.0); Monocytes % (A) 3 %; Neutrophils # (A) 7.9 k/uL (1.3-7.7); Neutrophils % (A) 89 %; Platelet Count 128 k/uL (150-450); Poikilocytosis Slight; RBC 3.45 m/uL (3.80-5.40); RDW 16.9 % (11.5-15.5); WBC 8.8 k/uL (3.8-10.6)
--- NOTE | 2019-03-22 09:32 | CONS ---
CONSULTATION DATE OF SERVICE: 03/21/2019 REASON FOR CONSULTATION: Fever and right leg swollen and red. HISTORY OF PRESENT ILLNESS: The patient is a 68-year-old female with a past medical history significant for melanoma right leg and this patient did have multiple surgeries on the right leg with secondary lymphedema to the right leg. The patient presenting to the hospital are the patient was noticed by the daughter to be wearing a T-shirt at the edge of the bed, short of breath and confused and the patient has been complaining of feeling warm and cold. She was on oxygen. Apparently the patient right leg was noticed to be more red and tender with these symptoms the patient was brought into the ER. On arrival to the ER, the patient initially was afebrile. Subsequently, early this morning the patient started running a fever of 101-102.2 degrees Fahrenheit. The patient did have a normal white count on admission of 9.8. The urine drug screen was negative and the patient did have a normal creatinine. The patient be decided to be started on clindamycin. Infectious Disease was consulted for further recommendations regarding antibiotic therapy. The patient on today's evaluation has been complaining of feeling weak and tired and no energy. The patient denies having any chest pain. He did have minimal cough. No nausea, no vomiting. No abdominal pain. No diarrhea. The patient did have chronic swelling to the leg, recurrent, denies significant pain to it. REVIEW OF SYSTEMS: Positive points have been mentioned in HPI. Rest of the systems are negative. PAST MEDICAL HISTORY: COPD, diabetes mellitus, hypertension, hypothyroidism, Grave's disease, metastatic melanoma. PAST SURGICAL HISTORY: Tubal ligation, removal of melanoma x2. SOCIAL HISTORY: Remote history of smoking, no drinking or drug use. FAMILY HISTORY: No pertinent findings noticed. ALLERGIES: No known drug allergies. MEDICATIONS: Medications include the patient currently on Tylenol, Ventolin, DuoNeb, Xanax, Lipitor, Pulmicort, clindamycin 300 q.8 hours. She is on Neurontin, NovoLog, Levemir, Cozaar, Glucophage, Solu-Medrol, Toprol-XL, K-Dur, and Xarelto. PHYSICAL EXAMINATION: Blood pressure 107/64 with a pulse of 69, temperature 98.4, she is 95% on 5 L. nasal cannula. General description is an elderly female, up in the chair in no distress. No tachypnea or accessory muscle for respiration use. HEENT: Examination shows slight pallor. No scleral icterus. Oral mucosa is dry. No pharyngeal erythema or thrush. NECK: Trachea central, no thyromegaly. LUNGS: Unlabored breathing, decreased breath sounds at the base, no wheeze. HEART: S1, S2. Regular rate and rhythm. ABDOMEN: Soft, no tenderness. No guarding or rigidity. EXTREMITIES: Did have significant swelling, very minimal hyperemia. No significant warmth, tenderness, open wound, or any drainage. NEUROLOGICAL: The patient is awake, alert, oriented, mood and affect normal. LABS: Hemoglobin is 12.4, white count 9.8, creatinine is 0.90. Urine drug screen was negative. Alcohol level was less than 10. Chest x-ray, cardiomegaly but no evidence of any acute infiltrate. IMPRESSION: Patient admitted to the hospital with mental status changes and fever with some respiratory symptoms. However, x-rays have been negative for any consolidation. The patient did have significant swelling of the right lower extremity with concern for possible cellulitis, less likely but not entirely excluded as no other definite focus of infection. However, the patient further workup including a UA and influenza serology in view of the respiratory symptoms, plan. PLAN: 1. Will check a lower extremity abdomen, no evidence of any DVT. 2. Will check influenza serology and UA and cultures. 3. Will adjust antibiotic to cefazolin 2 g q.8 hours. 4. Will follow up on clinical condition and further adjust medication if needed. Thank you for this consultation. Will follow this patient along with you. MMODL / IJN: [id number] /
[2019-03-22 09:33] LABS: African American GFR (CKD) >90 (>60 ml/min/1.73 sqM); Anion Gap 7 mmol/L; Blood Urea Nitrogen 33 mg/dL (7-17); Calcium 7.8 mg/dL (8.4-10.2); Carbon Dioxide 34 mmol/L (22-30); Chloride 95 mmol/L (98-107); Non-African American GFR(CKD) 83 (>60 ml/min/1.73 sqM); Potassium 3.8 mmol/L (3.5-5.1); Sodium 136 mmol/L (137-145)
[2019-03-22 10:14] LABS: Glucose 42 mg/dL (74-99)
[2019-03-22 11:25] LABS: Glucose,Whole Blood 56 mg/dL (75-99)
[2019-03-22 11:37] LABS: Glucose,Whole Blood 57 mg/dL (75-99)
[2019-03-22 12:00] LABS: Glucose,Whole Blood 64 mg/dL (75-99)
[2019-03-22 12:26] LABS: Glucose,Whole Blood 104 mg/dL (75-99)
--- NOTE | 2019-03-22 13:54 | P.PN ---
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 She denies prior history of coronary artery disease. She is seen and examined laying flat in bed in no acute distress. She is quite tired, she was given xanx this morning at 0826. She denies chest pain, shortness of breath, dizziness or palpitations. She was transitioned to oral diuretics this morning secondary to hypotension. B lood pressure 123/63 heart rate 90 afebrile and maintaining oxygen saturation on nasal cannula. Laboratory data reviewed, WBC 8.8, hgb 10, plt 128, sodium 136, potassium 3.8, creatinine 0.76 and glucose was 42. Currently maintained on xarelto 20 mg daily, torpol 200 mg daily, losartain 50 mg daily, lasix 40 mg BID and atorvastatin 40 mg daily. Repeat chest xray yesterday revealed mild bilateral pleural effusion, mild pulmonary edemsa that is improved from previous study. GENERAL: Well-appearing, well-nourished and in no acute distress. NECK: Supple without JVD or thyromegaly. LUNGS: Breath sounds clear to auscultation bilaterally. Respiration equal and unlabored. No wheezes, rales or rhonchi. Diminished bilaterally. HEART: Irregular rate and rhythm without murmurs, rubs or gallops. S1 and S2 heard. EXTREMITIES: Normal range of motion, right lower extremity 2+ pitting edema. No clubbing or cyanosis. Peripheral pulses intact. ASSESSMENT Sepsis Acute on chronic heart failure Acute exacerbation of COPD Right lower extremity cellulitis causing sepsis Melanoma with metastasis to the lungs Chronic persistent atrial fibrillation on shelter anticoagulation Diabetes mellitus Hypertension Thrombocytopenia PLAN Overall stable from a cardiac perspective. Continue current medical regimen. We will follow as needed, please feel to call with further questions or concerns. Nurse Practitioner note has been reviewed, I agree with a documented findings and plan of care. Patient was seen and examined. Objective - Vital Signs Vital signs: Vital Signs Temp 98.3 F 03/22/19 07:00 Pulse 78 03/22/19 09:28 Resp 18 03/22/19 07:00 BP 101/63 03/22/19 07:00 Pulse Ox 97 03/22/19 09:06 Intake & Output 03/21/19 03/22/19 03/22/19 18:59 06:59 18:59 Intake Total 654 Output Total 350 450 450 Balance 304 -450 -450 Weight 128.3 kg Intake: Oral 654 Output: Urine 350 450 450 Other: Voiding Method Bedside Commode # Voids 1 1 # Bowel Movements 1 - Labs CBC & Chem 7: 03/22/19 07:13 03/22/19 07:13 Labs: Abnormal Lab Results - Last 24 Hours (Table) 03/21/19 03/21/19 03/21/19 Range/Units 12:08 16:49 19:25 RBC (3.80-5.40) m/uL Hgb (11.4-16.0) gm/dL Hct (34.0-46.0) % RDW (11.5-15.5) % Plt Count (150-450) k/uL Neutrophils # (1.3-7.7) k/uL Lymphocytes # (1.0-4.8) k/uL Sodium (137-145) mmol/L Chloride (98-107) mmol/L Carbon Dioxide (22-30) mmol/L BUN (7-17) mg/dL Glucose (74-99) mg/dL POC Glucose (mg/dL) 270 H 277 H (75-99) mg/dL Calcium (8.4-10.2) mg/dL Urine Protein 1+ H (Negative) Urine Glucose (UA) Trace H (Negative) Urine Blood Moderate H (Negative) Ur Leukocyte Esterase Trace H (Negative) Urine WBC 7 H (0-5) /hpf Ur Squamous Epith Cells 5 H (0-4) /hpf Hyaline Casts 14 H (0-2) /lpf Urine Mucus Rare H (None) /hpf 03/21/19 03/22/19 03/22/19 Range/Units 20:01 07:13 07:13 RBC 3.45 L (3.80-5.40) m/uL Hgb 10.0 L D (11.4-16.0) gm/dL Hct 31.0 L (34.0-46.0) % RDW 16.9 H (11.5-15.5) % Plt Count 128 L (150-450) k/uL Neutrophils # 7.9 H (1.3-7.7) k/uL Lymphocytes # 0.6 L (1.0-4.8) k/uL Sodium 136 L (137-145) mmol/L Chloride 95 L (98-107) mmol/L Carbon Dioxide 34 H (22-30) mmol/L BUN 33 H (7-17) mg/dL Glucose 42 L* (74-99) mg/dL POC Glucose (mg/dL) 314 H (75-99) mg/dL Calcium 7.8 L (8.4-10.2) mg/dL Urine Protein (Negative) Urine Glucose (UA) (Negative) Urine Blood (Negative) Ur Leukocyte Esterase (Negative) Urine WBC (0-5) /hpf Ur Squamous Epith Cells (0-4) /hpf Hyaline Casts (0-2) /lpf Urine Mucus (None) /hpf Microbiology - Last 24 Hours (Table) 03/21/19 04:50 Blood Culture - Preliminary Blood No Growth after 24 hours
--- NOTE | 2019-03-22 16:58 | P.CONS ---
History of Present Illness - Reason for Consult Consult date: 03/22/19 on treatment for metastatic melanoma Requesting physician: Jake Llanos - Chief Complaint confusion, AMS, hypoxic - History of Present Illness Ms. Soto is a very pleasant 68-year-old female patient who we've been asked to see as she is on treatment for metastatic melanoma. Patient was initially seen in February [address] Stevens after she had resection of melanoma from the right posterior calf. This was superficial, 1.15 Breslow's thickness, Rigo level III, sentinel nodes from the right groin were negative for malignancy, no adjuvant therapy was needed. Patient continued follow-up with Dr. Rigo Glaser, as well as ongoing skin exams and resection of any suspicious lesions. Patient's next malignancy was in April 2013, posterior right calf and popliteal area. She had a new lesion on her right thigh and a skin tag on the right mid back that became nodular. She was seen by Dr Riggins and had excisional biopsy of a right lower calf lesion, as well as a punch biopsy of the lesion just behind the knee on 07/02/13. These were positive for melanoma. The right mid back lesion was resected on 07/09/13, negative for malignancy. Staging PET scan no distant metastases, local regional recurrent disease. At that time she was offered IL-2, immunotherapy was very new at the time, and she was referred to a tertiary center for evaluation for high dose IL-2 therapy. Patient states that she has had several different treatments with Dr. Cross. She had scans in January, and there must of been disease progression because patient was started on new oral in February braftovi/mektovi. Patient is currently admitted for altered mental status, she states that she was at home and her family found her off of her oxygen and very confused. She said that this incident was preceded with chills and nausea, she doesn't remember when she took her O2 off and how long she was off of it, she is supposed to be on continuous O2. Patient was confused, her family found her in her home "disheveled" and very out of sorts. On admission she was hypercarbic, she is starting to feel a little more alert on O2, she knows she is slow to respond and some of her answers are wrong. Denied current fevers, chills, vomiting, chest pain, abdominal pain or distention, she is positive for nausea, mostly nonproductive cough, right lower extremity swelling, firmness and discomfort secondary to disease. Review of Systems 14 point review of systems is difficult to obtain, it is as stated in HPI Past Medical History Past Medical History: Cancer, COPD, Diabetes Mellitus, Hypertension, Thyroid Disorder Additional Past Medical History / Comment(s): melanoma- targeted chemo, immunotherapy, Graves dx History of Any Multi-Drug Resistant Organisms: None Reported Past Surgical History: Tubal Ligation Additional Past Surgical History / Comment(s): removal of melanoma x2 Past Psychological History: No Psychological Hx Reported Smoking Status: Former smoker Past Alcohol Use History: None Reported Past Drug Use History: None Reported Medications and Allergies Home Medications Medication Instructions Recorded Confirmed Type ALPRAZolam [Xanax] 0.25 mg PO TID 09/20/14 03/20/19 History Albuterol Inhaler [Ventolin 2 puff INHALATION RT-Q6H PRN 09/20/14 03/20/19 History Inhaler] Budesonide-Formot 160-4.5 Mcg 2 puff INHALATION RT-BID 09/20/14 03/20/19 History [Symbicort 160-4.5 Mcg Inhaler] Losartan Potassium [Cozaar] 50 mg PO DAILY 09/20/14 03/20/19 History Albuterol Nebulized [Ventolin 2.5 mg INHALATION RT-QID PRN 03/20/19 03/20/19 History Nebulized] Atorvastatin [Lipitor] 40 mg PO DAILY 03/20/19 03/20/19 History Fluticasone Nasal [place] [Flonase 1 spray EA NOSTRIL BID 03/20/19 03/20/19 History Nasal [place]] Furosemide [Lasix] 40 mg PO BID 03/20/19 03/20/19 History Gabapentin 1,200 mg PO BID 03/20/19 03/20/19 History Insulin Glargine,Hum.rec.anlog 42 unit SQ BID 03/20/19 03/20/19 History [Basaglar Kwikpen U-100] Levothyroxine Sodium 100 mcg PO DAILY 03/20/19 03/20/19 History Metoprolol Succinate [Toprol XL] 200 mg PO DAILY 03/20/19 03/20/19 History Multivitamins, Thera [Multivitamin 1 tab PO DAILY 03/20/19 03/20/19 History (formulary)] Potassium Chloride ER [K-Dur 20] 20 meq PO DAILY 03/20/19 03/20/19 History Rivaroxaban [Xarelto] 20 mg PO DAILY 03/20/19 03/20/19 History Tafinlar 75mg Cap 150 mg PO BID 03/20/19 03/20/19 History Trametinib Dimethyl Sulfoxide 2 mg PO DAILY 03/20/19 03/20/19 History [Mekinist] Umeclidinium [place] [Incruse 1 puff INHALATION RT-DAILY 03/20/19 03/20/19 History Ellipta] metFORMIN HCL 1,000 mg PO BID 03/20/19 03/20/19 History Allergies Allergy/AdvReac Type Severity Reaction Status Date / Time No Known Allergies Allergy Verified 03/20/19 10:15 Physical Exam Vitals: Vital Signs Temp Pulse Pulse Resp BP Pulse Ox 03/22/19 15:26 82 03/22/19 15:15 80 03/22/19 12:30 97.9 F 88 17 117/75 93 L 03/22/19 10:28 97.7 F 90 18 123/63 96 03/22/19 09:28 78 03/22/19 09:20 80 03/22/19 09:19 80 03/22/19 09:06 76 97 03/22/19 07:00 98.3 F 83 18 101/63 95 03/22/19 03:57 18 03/22/19 02:38 98.4 F 75 17 117/62 93 L 03/22/19 00:15 20 03/21/19 23:54 98.3 F 92 20 122/76 95 03/21/19 20:15 20 03/21/19 20:03 78 03/21/19 19:57 98.0 F 79 18 111/70 95 03/21/19 19:54 80 03/21/19 19:42 80 Intake and Output 03/22/19 03/22/19 03/22/19 06:59 14:59 22:59 Output Total 450 Balance -450 Output: Urine 450 Other: Voiding Method Bedside Commode # Voids 1 1 - Constitutional General appearance: cooperative, disheveled, mild distress, morbidly obese - EENT Eyes: anicteric sclerae, EOMI ENT: hearing grossly normal, normal oropharynx - Neck Neck: no lymphadenopathy - Respiratory Respiratory: bilateral: diminished, rhonchi - Cardiovascular tachy Rhythm: irregularly irregular Heart sounds: normal: S1, S2 Abnormal Heart Sounds: no systolic murmur, no diastolic murmur, no rub, no S3 Gallop, no S4 Gallop, no click, no other leg Peripheral Edema: right: 3+, left: None - Gastrointestinal General gastrointestinal: no absent bowel sounds, no decreased bowel sounds, distended, no hepatomegaly, no hyperactive bowel sounds, normal bowel sounds, no organomegaly, no rigid, no scaphoid, soft, no splenomegaly, no tenderness, no umbilical hernia, no ventral hernia - Neurologic Neurologic: CNII-XII intact - Musculoskeletal Musculoskeletal: generalized weakness, strength equal bilaterally - Psychiatric A&Ox2, difficulty with recent recall, is able to remember some remote info if given time, appropriate in her mood and affect Results CBC & Chem 7: 03/22/19 07:13 03/22/19 07:13 Labs: Abnormal Lab Results - Last 24 Hours (Table) 03/21/19 03/21/19 03/21/19 Range/Units 04:50 16:49 19:25 RBC (3.80-5.40) m/uL Hgb (11.4-16.0) gm/dL Hct (34.0-46.0) % RDW (11.5-15.5) % Plt Count (150-450) k/uL Neutrophils # (1.3-7.7) k/uL Lymphocytes # (1.0-4.8) k/uL Sodium (137-145) mmol/L Chloride (98-107) mmol/L Carbon Dioxide (22-30) mmol/L BUN (7-17) mg/dL Glucose (74-99) mg/dL POC Glucose (mg/dL) 277 H (75-99) mg/dL Calcium (8.4-10.2) mg/dL Procalcitonin 2.72 H (0.02-0.09) ng/mL Free T3 pg/mL (2.8-5.3) pg/ml Urine Protein 1+ H (Negative) Urine Glucose (UA) Trace H (Negative) Urine Blood Moderate H (Negative) Ur Leukocyte Esterase Trace H (Negative) Urine WBC 7 H (0-5) /hpf Ur Squamous Epith Cells 5 H (0-4) /hpf Hyaline Casts 14 H (0-2) /lpf Urine Mucus Rare H (None) /hpf 03/21/19 03/22/19 03/22/19 Range/Units 20:01 07:13 07:13 RBC 3.45 L (3.80-5.40) m/uL Hgb 10.0 L D (11.4-16.0) gm/dL Hct 31.0 L (34.0-46.0) % RDW 16.9 H (11.5-15.5) % Plt Count 128 L (150-450) k/uL Neutrophils # 7.9 H (1.3-7.7) k/uL Lymphocytes # 0.6 L (1.0-4.8) k/uL Sodium 136 L (137-145) mmol/L Chloride 95 L (98-107) mmol/L Carbon Dioxide 34 H (22-30) mmol/L BUN 33 H (7-17) mg/dL Glucose 42 L* (74-99) mg/dL POC Glucose (mg/dL) 314 H (75-99) mg/dL Calcium 7.8 L (8.4-10.2) mg/dL Procalcitonin (0.02-0.09) ng/mL Free T3 pg/mL (2.8-5.3) pg/ml Urine Protein (Negative) Urine Glucose (UA) (Negative) Urine Blood (Negative) Ur Leukocyte Esterase (Negative) Urine WBC (0-5) /hpf Ur Squamous Epith Cells (0-4) /hpf Hyaline Casts (0-2) /lpf Urine Mucus (None) /hpf 03/22/19 03/22/19 03/22/19 Range/Units 07:13 11:08 11:31 RBC (3.80-5.40) m/uL Hgb (11.4-16.0) gm/dL Hct (34.0-46.0) % RDW (11.5-15.5) % Plt Count (150-450) k/uL Neutrophils # (1.3-7.7) k/uL Lymphocytes # (1.0-4.8) k/uL Sodium (137-145) mmol/L Chloride (98-107) mmol/L Carbon Dioxide (22-30) mmol/L BUN (7-17) mg/dL Glucose (74-99) mg/dL POC Glucose (mg/dL) 56 L 57 L (75-99) mg/dL Calcium (8.4-10.2) mg/dL Procalcitonin (0.02-0.09) ng/mL Free T3 pg/mL 1.0 L (2.8-5.3) pg/ml Urine Protein (Negative) Urine Glucose (UA) (Negative) Urine Blood (Negative) Ur Leukocyte Esterase (Negative) Urine WBC (0-5) /hpf Ur Squamous Epith Cells (0-4) /hpf Hyaline Casts (0-2) /lpf Urine Mucus (None) /hpf 03/22/19 03/22/19 Range/Units 11:56 12:14 RBC (3.80-5.40) m/uL Hgb (11.4-16.0) gm/dL Hct (34.0-46.0) % RDW (11.5-15.5) % Plt Count (150-450) k/uL Neutrophils # (1.3-7.7) k/uL Lymphocytes # (1.0-4.8) k/uL Sodium (137-145) mmol/L Chloride (98-107) mmol/L Carbon Dioxide (22-30) mmol/L BUN (7-17) mg/dL Glucose (74-99) mg/dL POC Glucose (mg/dL) 64 L 104 H (75-99) mg/dL Calcium (8.4-10.2) mg/dL Procalcitonin (0.02-0.09) ng/mL Free T3 pg/mL (2.8-5.3) pg/ml Urine Protein (Negative) Urine Glucose (UA) (Negative) Urine Blood (Negative) Ur Leukocyte Esterase (Negative) Urine WBC (0-5) /hpf Ur Squamous Epith Cells (0-4) /hpf Hyaline Casts (0-2) /lpf Urine Mucus (None) /hpf Microbiology - Last 24 Hours (Table) 03/21/19 04:50 Blood Culture - Preliminary Blood No Growth after 24 hours Chest x-ray: report reviewed Venous US: report reviewed Assessment and Plan (1) Metastatic melanoma Narrative/Plan: Patient's description of her current treatment she is on encorafenib and binmetinib. Patient is BRAF mutated to be on this medication. This is new treatment started in early Feb so, pt has recently had disease progression. Have requested Dr. Cross notes and plan of care. Braftovi/Maktovi will be held as of now until the underlying cause to her presentation is treated and pt improved. Doppler of RLE is negative for DVT CTA chest ordered. Pt has a history of PE, r/o propagation or acute embolism. (pt is on anticoagulation) Patient states that she was found at home without her oxygen on, she is not sure for the duration so, she most likely was hypoxic, will see if her symptoms improve with O2 as prescribed. Chest x-ray report reviewed, states improvement over previous CXR 03/19/19. Current Visit: Yes Status: Chronic Priority: Medium Code(s): C79.9 - SECONDARY MALIGNANT NEOPLASM OF UNSPECIFIED SITE SNOMED Code(s): 353575882 (2) Atrial fibrillation Narrative/Plan: New onset, Cardiology consulted. Pt is on anticoagulation for Hx PE Thyroid studies ordered as pt has Hx of Tx with immunotherapy Current Visit: Yes Status: Acute Priority: High Code(s): I48.91 - UNSPECIFIED ATRIAL FIBRILLATION SNOMED Code(s): 09959890 (3) Hypoxia Narrative/Plan: Pt is O2 dependent, was not wearing O2 when found by family. O2 continuous Current Visit: Yes Status: Acute Priority: High Code(s): R09.02 - HYPOXEMIA SNOMED Code(s): 992126604 Plan: Note from [facility] dated March 03, 2019-pt discharged from hospital February 19, 2019 after an 8 day stay for pneumonia. Patient did have a bronchoscopy with washings, no masses, no malignant cells. 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 Patient has only multiple in-transit metastases of the right lower extremity. She has had ipilimumab with development of pneumonitis, Pembrolizumab with dise ase progression, cryotherapy of the right calf, TVEC injections and now oral. Her last PET scan was dated 01/25/19, hypermetabolism in the left hilar area, this is continuing to be monitored as [place] and washings were negative for malignancy. Nodular soft tissue foci in the right calf similar to before.
[2019-03-22 17:21] LABS: Glucose,Whole Blood 242 mg/dL (75-99)
--- NOTE | 2019-03-22 18:56 | CT ---
EXAMINATION TYPE: CT angio chest DATE OF EXAM: 03/22/2019 COMPARISON: None HISTORY: SOB CT DLP: 556.4 mGycm Automated exposure control for dose reduction was used. CONTRAST: Performed with IV Contrast, patient injected with 80 mL of Isovue 370. There are 3-D post processed images. There is some interstitial nodular infiltrate in the posterior segment of the left upper lobe adjacen t to the major fissure. There is some patchy atelectasis at the lung bases. There is no pleural effus ion. Heart is enlarged. There is no pericardial effusion. There is normal contrast opacification of the pulmonary arteries. There are no filling defects. There is no mediastinal adenopathy. There are bilateral bronchial lymph nodes that measure up to 1.5 cm. T horacic aorta shows no aneurysm or dissection. Ascending aorta measures 3.7 cm. The bony thorax is in tact. IMPRESSION: No evidence of pulmonary embolism. Mild bronchial adenopathy. Mild infiltrate left upper lobe.
[2019-03-22 20:08] LABS: Glucose,Whole Blood 256 mg/dL (75-99)
--- NOTE | 2019-03-22 20:14 | P.PN ---
Progress Note - Text Progress Note Date: 03/22/19 Chief Complaint: Acute confusion History of presenting complaint: This is a pleasant 68-year-old patient of Dr. Hank Lloyd. Most of the history is obtained by the daughter the bedside. 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 Patient has a diagnosis for 9 years with recent spread to the lungs.. Patient is on medication for the same.. She follows with Dr. DAVILA at [facility]. Patient had taken out for lunch yesterday and left the patient at home at 4:45 PM. And she came home around 10:00 PM she found that the bathroom door was open and patient is oxygen nasal cannula lying on the floor. She came to the bedroom and found everything was helter-skelter. And patient was sitting in a T-shirt at the edge of the bed short of breath confused. Patient had complained of feeling warm and cold. She was without her oxygen. She also noticed that patient's right leg was somewhat red and tender. 911 was called. Patient still remained somewhat delirious. Tired. Hospital course: Admitted with-acute right lower extremity cellulitis, acute metabolic encephalopathy, acute COPD exacerbation, atrial fibrillation with rapid ventricular rate. Started on IV clindamycin, bronchodilator steroids. Today-continues to feel better. Appetite improving. For more awake. Pain swelling redness of the right lower extremity is improved.. At about 75% of breakfast and 100% of lunch. Review of systems: Was done for constitutional, cardiovascular, GI, pulmonary. relevant finding as above Active Medications Acetaminophen (Tylenol Tab) 650 mg PO Q4HR PRN PRN Reason: Fever and/ or Pain Last Admin: 03/22/19 05:40 Dose: 650 mg Documented by: Albuterol/Ipratropium (Duoneb 0.5 Mg-3 Mg/3 Ml Soln) 3 ml INHALATION RT-Q4H PRN PRN Reason: Shortness Of Breath Or Wheezing Last Admin: 03/20/19 15:17 Dose: 3 ml Documented by: Albuterol/Ipratropium (Duoneb 0.5 Mg-3 Mg/3 Ml Soln) 3 ml INHALATION RT-QID MAR[place] Last Admin: 03/22/19 19:29 Dose: 3 ml Documented by: Alprazolam (Xanax) 0.25 mg PO TID PRN PRN Reason: Anxiety Last Admin: 03/22/19 08:26 Dose: 0.25 mg Documented by: Atorvastatin Calcium (Lipitor) 40 mg PO DAILY [facility] Last Admin: 03/22/19 08:12 Dose: 40 mg Documented by: Budesonide (Pulmicort) 1 mg INHALATION RT-BID [facility] Last Admin: 03/22/19 19:29 Dose: 1 mg Documented by: Formoterol Fumarate (Perforomist) 20 mcg INHALATION RT-BID [facility] Last Admin: 03/22/19 19:29 Dose: 20 mcg Documented by: Furosemide (Lasix) 40 mg PO BID@0900,1600 [facility] Last Admin: 03/22/19 17:34 Dose: 40 mg Documented by: Gabapentin (Neurontin) 1,200 mg PO BID [facility] Last Admin: 03/22/19 08:12 Dose: 1,200 mg Documented by: Cefazolin Sodium 2 gm/ Sodium (Chloride) 50 mls @ 100 mls/hr IVPB Q8HR [facility] Last Admin: 03/22/19 17:33 Dose: 100 mls/hr Documented by: Insulin Aspart (Novolog) 0 unit SQ ACHS [facility]; Protocol Last Admin: 03/22/19 17:34 Dose: 5 unit Documented by: Insulin Detemir (Levemir) 42 unit SQ BID@0700,2100 [facility] Last Admin: 03/22/19 08:12 Dose: 42 unit Documented by: Losartan Potassium (Cozaar) 50 mg PO DAILY [facility] Last Admin: 03/22/19 08:12 Dose: 50 mg Documented by: Metformin HCl (Glucophage) 1,000 mg PO BID-W/MEALS [facility] Last Admin: 03/22/19 17:07 Dose: Not Given Documented by: Metoprolol Succinate (Toprol Xl) 200 mg PO DAILY [facility] Last Admin: 03/22/19 08:26 Dose: 200 mg Documented by: Tafinlar 75mg Cap 150 mg PO AC-BID [facility] Last Admin: 03/22/19 17:32 Dose: 150 mg Documented by: Trametinib Dimethyl (Sulfoxide [Mekinist]) 2 mg PO AC-BRKFST [facility] Last Admin: 03/22/19 05:57 Dose: 2 mg Documented by: Potassium Chloride (K-Dur 20) 20 meq PO DAILY [facility] Last Admin: 03/22/19 09:23 Dose: 20 meq Documented by: Prednisone () 40 mg PO DAILY [facility] Last Admin: 03/22/19 09:22 Dose: 40 mg Documented by: Rivaroxaban (Xarelto) 20 mg PO DAILY [facility] Last Admin: 03/22/19 09:22 Dose: 20 mg Documented by: Physical examination: VITAL SIGNS: Afebrile, 88, 17, 117/75, 93% room air GENERAL: Laying in bed, more awake and communicative EYES: Pupils equal. Conjunctiva normal. HEENT: External appearance of nose and ears normal, oral cavity grossly normal. NECK: JVD unable to assess; masses not palpable. HEART: First and second heart sounds are normal; edema present. LUNGS: Respiratory rate increased, decreased breath sounds. Less wheezing ABDOMEN: Soft, nontender, liver spleen not palpable, no masses palpable. PSYCH: AAO 3, anxious EXTREMITIES: Decreased redness and decreased local temperature of the right lower extremity INVESTIGATIONS, reviewed in the clinical context: White count 8.8 hemoglobin 10 platelets 128 potassium 3.8 glucose 42 and 56 White count 9.8 hemoglobin 12.4 platelets 123 potassium 3.5 bun 29 creatinine 0.90 Glucose 320 proBNP 920 Urine drug screen negative serum alcohol less than 10 EKG tracing personally reviewed by me-atrial fibrillation rate about 110 Chest x-ray film personally reviewed by me-bit underpenetrated questionable venous prominence Ultrasound Doppler-negative for DVT Assessment: -Acute right lower extremity cellulitis below the knee, causing sepsis, POA improving -Acute metabolic encephalopathy likely from sepsis, improving -Acute COPD exacerbation in an ex-smoker, improving -Chronic hypoxic respiratory failure on 3 L oxygen at home -Metastatic stage IV melanoma, patient is on directed chemo and immunotherapy. follows at [facility] -Diabetes mellitus type 2, chronically on insulin, uncontrolled with hypoglycemia -Essential hypertension -Hypothyroid -Morbid obesity BMI 43.9 -Persistent atrial fibrillation with increased ventricular rate on presentation,-Chronically on Xarelto Plan: Encouraged to be out of bed. Sitting upon a chair. Patient continues to improve. Continue with IV Ancef.
--- NOTE | 2019-03-22 21:32 | PN ---
PROGRESS NOTE DATE OF SERVICE: 03/22/2019 REASON FOR FOLLOWUP: Fever with question of right lower extremity cellulitis. INTERVAL HISTORY: The patient is currently afebrile. The patient has been breathing comfortably. She did have a mild cough. No chest pain. No nausea, no vomiting. No abdominal pain or diarrhea. PHYSICAL EXAMINATION: Blood pressure 115/55 with a pulse of 80, temperature 98.5. She is 96% on 4 L nasal cannula. General description is an elderly female up in the chair in no distress. RESPIRATORY SYSTEM: Unlabored breathing with decreased intensity of breath sounds. No wheeze. HEART: S1, S2. Regular rate and rhythm. ABDOMEN: Soft. No tenderness. LABS: Influenza serology was negative. Urine was significantly positive. Blood culture so far negative. DIAGNOSTIC IMPRESSION AND PLAN: Patient admitted to hospital with less responsiveness. Did have a fever, with concern for right lower extremity cellulitis. Leg was negative for DVT. Patient is covered with Cefazolin. Fever has resolved. Blood culture so far negative. Continue with supportive care. MMODL / IJN: [id number] /
[2019-03-23 02:13] LABS: Glucose,Whole Blood 206 mg/dL (75-99)
[2019-03-23 07:03] LABS: Glucose,Whole Blood 61 mg/dL (75-99)
[2019-03-23] MEDS: IPRATROPIUM-ALBUTEROL 3 ML NEB INHALATION SCH ×4 (07:09→19:52)
[2019-03-23] MEDS: FORMOTEROL FUMARATE 20 MCG/2 ML NEBU INHALATION SCH ×2 (07:09→19:52)
[2019-03-23] MEDS: BUDESONIDE 1 MG/2 ML NEBU INHALATION SCH ×2 (07:09→19:52)
[2019-03-23 07:22] LABS: Glucose,Whole Blood 83 mg/dL (75-99)
[2019-03-23] MEDS: INSULIN ASPART (NovoLOG) 100 UNIT/ML VIAL SQ SCH ×4 (07:53→20:11)
[2019-03-23 08:25] LABS: African American GFR (CKD) >90 (>60 ml/min/1.73 sqM); Anion Gap 5 mmol/L; Blood Urea Nitrogen 31 mg/dL (7-17); Calcium 8.3 mg/dL (8.4-10.2); Carbon Dioxide 39 mmol/L (22-30); Chloride 95 mmol/L (98-107); Glucose 52 mg/dL (74-99); Non-African American GFR(CKD) 85 (>60 ml/min/1.73 sqM); Potassium 3.9 mmol/L (3.5-5.1); Sodium 139 mmol/L (137-145)
[2019-03-23] MEDS: INSULIN DETEMIR (LEVEMIR) 100 UNIT/ML SYR SQ SCH ×2 (08:40→20:11)
[2019-03-23] MEDS: predniSONE 20 MG TAB PO SCH (08:40)
[2019-03-23] MEDS: POTASSIUM CHLORIDE ER 20 MEQ TAB.ER PO SCH (08:41)
[2019-03-23] MEDS: METOPROLOL SUCCINATE (ER) 100 MG TAB.ER.24H PO SCH (08:41)
[2019-03-23] MEDS: RIVAROXABAN 20 MG TAB PO SCH (08:41)
[2019-03-23] MEDS: ATORVASTATIN 40 MG TAB PO SCH (08:42)
[2019-03-23] MEDS: LOSARTAN 50 MG TAB PO SCH (08:42)
[2019-03-23] MEDS: metFORMIN 500 MG TAB PO SCH ×2 (08:42→17:13)
[2019-03-23] MEDS: FUROSEMIDE 40 MG TAB PO SCH ×2 (08:43→17:14)
[2019-03-23] MEDS: GABAPENTIN 400 MG CAP PO SCH ×2 (08:43→20:11)
[2019-03-23] MEDS: ALPRAZolam 0.25 MG TAB PO PRN ×2 (08:51→22:19)
[2019-03-23] MEDS: TAFINLAR 75 MG PO SCH ×2 (10:00→20:10)
[2019-03-23] MEDS: Trametinib Dimethyl Sulfoxide [Mekinist] PO SCH (10:00)
--- NOTE | 2019-03-23 10:44 | ECHOF ---
Referral Reason:Chest pain and cardiomyopathy MEASUREMENTS -------- HEIGHT: 157.5 cm WEIGHT: 127.9 kg BP: 117/62 RVIDd: 3.8 cm (< 3.3) IVSd: 1.1 cm (0.6 - 1.1) LVIDd: 5.0 cm (3.9 - 5.3) LVPWd: 1.4 cm (0.6 - 1.1) IVSs: 1.5 cm LVIDs: 3.7 cm LVPWs: 1.8 cm LA Diam: 4.4 cm (2.7 - 3.8) Ao Diam: 3.4 cm (2.0 - 3.7) AV Cusp: 1.6 cm (1.5 - 2.6) LA Diam: 4.2 cm (2.7 - 3.8) MV EXCURSION: 21.844 mm (> 18.000) MV EF SLOPE: 41 mm/s (70 - 150) EPSS: 1.0 cm MV E Obdulio: 1.02 m/s MV DecT: 128 ms MV A Obdulio: 0.25 m/s MV E/A Ratio: 4.11 RAP: 5.00 mmHg RVSP: 14.77 mmHg FINDINGS -------- Undetermined rhythm. Morbid Obesity This was a techncally difficult study with suboptimal views, , Lumason utilized for enhancement of im ages. The left ventricular size is normal. Overall left ventricular systolic function is low-normal with, an EF between 50 - 55 %. The right ventricle is mild to moderately enlarged. The left atrial size is normal. The right atrial size is normal. 5.0mg OF Lumason UTLIZED: 2 OR MORE WALL SEGMENTS NOT VISUALIZED. There is mild aortic valve sclerosis. There is no evidence of aortic regurgitation. Mild mitral annular calcification present. Mild mitral regurgitation is present. Mild tricuspid regurgitation present. Right ventricular systolic pressure is normal at < 35 mmHg. There is no evidence of pulmonary hypertension. The pulmonic valve was not well visualized. The aortic root size is normal. Echo free space represents a pericardial fat pad. CONCLUSIONS -------- 1. Undetermined rhythm. 2. Morbid Obesity 3. This was a techncally difficult study with suboptimal views, , Lumason utilized for enhancement of images. 4. The left ventricular size is normal. 5. Overall left ventricular systolic function is low-normal with, an EF between 50 - 55 %. 6. The right ventricle is mild to moderately enlarged. 7. The left atrial size is normal. 8. The right atrial size is normal. 9. 5.0mg OF Lumason UTLIZED: 2 OR MORE WALL SEGMENTS NOT VISUALIZED. 10. There is mild aortic valve sclerosis. 11. Mild mitral annular calcification present. 12. Mild mitral regurgitation is present. 13. Mild tricuspid regurgitation present. 14. Right ventricular systolic pressure is normal at < 35 mmHg. 15. There is no evidence of pulmonary hypertension. 16. The pulmonic valve was not well visualized. 17. The aortic root size is normal. 18. Echo free space represents a pericardial fat pad. POLE SANDER OPERATOR: Savanah Vo RDCS
[2019-03-23 11:20] LABS: Glucose,Whole Blood 95 mg/dL (75-99)
--- NOTE | 2019-03-23 15:13 | MR ---
EXAMINATION TYPE: MR brain wo/w con DATE OF EXAM: 03/23/2019 COMPARISON: Prior MRI brain July 22, 2013. HISTORY: AMS, Hx melanoma TECHNIQUE: Multiplanar, multisequence images of the brain and brainstem is performed without and with IV contras t, utilizing 13 mL intravenous Gadavist . FINDINGS: Diffusion weighted images demonstrate no evidence of a recent infarct or other diffusion ab normality. There is no worrisome extra-axial fluid collection. Persistent mild diffuse ventricular a nd sulcal prominence. Focal and confluent areas of T2 hyperintensity seen throughout the superficial, deep, and periventricular white matter. Lesions are nonspecific in appearance and distribution but p resumed on the basis of product of chronic small vessel ischemic change in a patient of this age. River e progression from 2014 study noted. Some lesions in the ko present near axial image 10 for referen ce. Midline structures demonstrate normal morphology. The craniocervical junction appears within normal limits. Post contrast images demonstrate no abnormal enhancement. The dural venous sinuses appear pa tent. Mild mucosal thickening involving ethmoid sinuses bilaterally. Remainder paranasal sinuses are clear. Right lens is flattened on current study, perhaps interval cataract surgery IMPRESSION: No new suspicious enhancing masses to suggest metastatic melanoma. Persistent mild diffus e cerebral atrophy with advanced chronic small vessel ischemic change with progression from 2013 stud y noted.
[2019-03-23 17:00] LABS: Glucose,Whole Blood 196 mg/dL (75-99)
[2019-03-23 19:53] LABS: Glucose,Whole Blood 263 mg/dL (75-99)
--- NOTE | 2019-03-23 22:43 | PN ---
PROGRESS NOTE DATE OF SERVICE: 03/23/2019 REASON FOR FOLLOWUP: Right lower extremity cellulitis. INTERVAL HISTORY: The patient is currently afebrile. The patient has been breathing comfortably. The patient denies having any chest pain. Occasional cough. No nausea, no vomiting, no abdominal pain or pain to the right leg area. PHYSICAL EXAMINATION: Blood pressure 111/59 with a pulse of 84, temperature 97. She is 97% on 4 L nasal cannula. General description is an elderly female up in the chair in no distress. RESPIRATORY SYSTEM: Unlabored breathing. Clear to auscultation anteriorly. HEART: S1, S2. Regular rate and rhythm. ABDOMEN: Soft. No tenderness. Right leg is currently dressed up. No obvious drainage on the dressing. DIAGNOSTIC IMPRESSION AND PLAN: Patient with a fever, source likely right lower extremity cellulitis. The patient has shown overall clinical improvement. She will finish therapy with oral Keflex along with Curtis wrap to the leg to keep the swelling down. Continue with supportive care. MMODL / IJN: [id number] / CARLOS ALBERTO
--- NOTE | 2019-03-23 23:19 | P.PN ---
Progress Note - Text Progress Note Date: 03/23/19 Chief Complaint: Acute confusion History of presenting complaint: This is a pleasant 68-year-old patient of Dr. Hank Lloyd. Most of the history is obtained by the daughter the bedside. 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 Patient has a diagnosis for 9 years with recent spread to the lungs.. Patient is on medication for the same.. She follows with Dr. DAVILA at [facility]. Patient had taken out for lunch yesterday and left the patient at home at 4:45 PM. And she came home around 10:00 PM she found that the bathroom door was open and patient is oxygen nasal cannula lying on the floor. She came to the bedroom and found everything was helter-skelter. And patient was sitting in a T-shirt at the edge of the bed short of breath confused. Patient had complained of feeling warm and cold. She was without her oxygen. She also noticed that patient's right leg was somewhat red and tender. 911 was called. Patient still remained somewhat delirious. Tired. Hospital course: Admitted with-acute right lower extremity cellulitis, acute metabolic encephalopathy, acute COPD exacerbation, atrial fibrillation with rapid ventricular rate. Started on IV clindamycin, bronchodilator steroids. Today-doing much better. Sitting up in chair. Combing her hair. Breathing is improved. Tolerated diet. Review of systems: Was done for constitutional, cardiovascular, GI, pulmonary. relevant finding as above Active Medications Acetaminophen (Tylenol Tab) 650 mg PO Q4HR PRN PRN Reason: Fever and/ or Pain Last Admin: 03/22/19 05:40 Dose: 650 mg Documented by: Albuterol/Ipratropium (Duoneb 0.5 Mg-3 Mg/3 Ml Soln) 3 ml INHALATION RT-Q4H PRN PRN Reason: Shortness Of Breath Or Wheezing Last Admin: 03/20/19 15:17 Dose: 3 ml Documented by: Albuterol/Ipratropium (Duoneb 0.5 Mg-3 Mg/3 Ml Soln) 3 ml INHALATION RT-QID MARCO Last Admin: 03/23/19 19:52 Dose: 3 ml Documented by: Alprazolam (Xanax) 0.25 mg PO TID PRN PRN Reason: Anxiety Last Admin: 03/23/19 22:19 Dose: 0.25 mg Documented by: Atorvastatin Calcium (Lipitor) 40 mg PO DAILY [facility] Last Admin: 03/23/19 08:42 Dose: 40 mg Documented by: Budesonide (Pulmicort) 1 mg INHALATION RT-BID [facility] Last Admin: 03/23/19 19:52 Dose: 1 mg Documented by: Formoterol Fumarate (Perforomist) 20 mcg INHALATION RT-BID [facility] Last Admin: 03/23/19 19:52 Dose: 20 mcg Documented by: Furosemide (Lasix) 40 mg PO BID@0900,1600 [facility] Last Admin: 03/23/19 17:14 Dose: 40 mg Documented by: Gabapentin (Neurontin) 1,200 mg PO BID [facility] Last Admin: 03/23/19 20:11 Dose: 1,200 mg Documented by: Cefazolin Sodium 2 gm/ Sodium (Chloride) 50 mls @ 100 mls/hr IVPB Q8HR [facility] Last Admin: 03/23/19 23:14 Dose: 100 mls/hr Documented by: Insulin Aspart (Novolog) 0 unit SQ ACHS [facility]; Protocol Last Admin: 03/23/19 20:11 Dose: 6 unit Documented by: Insulin Detemir (Levemir) 30 unit SQ BID [facility] Last Admin: 03/23/19 20:11 Dose: 30 unit Documented by: Losartan Potassium (Cozaar) 50 mg PO DAILY [facility] Last Admin: 03/23/19 08:42 Dose: 50 mg Documented by: Metformin HCl (Glucophage) 1,000 mg PO BID-W/MEALS [facility] Last Admin: 03/23/19 17:13 Dose: 1,000 mg Documented by: Metoprolol Succinate (Toprol Xl) 200 mg PO DAILY [facility] Last Admin: 03/23/19 08:41 Dose: 200 mg Documented by: Tafinlar 75mg Cap 150 mg PO AC-BID [facility] Last Admin: 03/23/19 20:10 Dose: 150 mg Documented by: Trametinib Dimethyl (Sulfoxide [Mekinist]) 2 mg PO AC-BRKFST [facility] Last Admin: 03/23/19 10:00 Dose: 2 mg Documented by: Potassium Chloride (K-Dur 20) 20 meq PO DAILY [facility] Last Admin: 03/23/19 08:41 Dose: 20 meq Documented by: Prednisone () 30 mg PO DAILY [facility] Rivaroxaban (Xarelto) 20 mg PO DAILY [facility] Last Admin: 03/23/19 08:41 Dose: 20 mg Documented by: Physical examination: VITAL SIGNS: 97.7, 63, 16, 111/59, 94% on 4 L GENERAL: Sitting upon a chair, combing her hair, looking more comfortable EYES: Pupils equal. Conjunctiva normal. HEENT: External appearance of nose and ears normal, oral cavity grossly normal. NECK: JVD unable to assess; masses not palpable. HEART: First and second heart sounds are normal; edema present. LUNGS: Respiratory rate increased, decreased breath sounds. Improved air entry ABDOMEN: Soft, nontender, liver spleen not palpable, no masses palpable. PSYCH: AAO 3, anxious EXTREMITIES: Decreased redness and decreased local temperature of the right lower extremity INVESTIGATIONS, reviewed in the clinical context: Potassium 3.9 and creatinine 0.74 glucose 52 MRI brain-negative for metastasis White count 9.8 hemoglobin 12.4 platelets 123 potassium 3.5 bun 29 creatinine 0.90 Glucose 320 proBNP 920 Urine drug screen negative serum alcohol less than 10 EKG tracing personally reviewed by me-atrial fibrillation rate about 110 Chest x-ray film personally reviewed by me-bit underpenetrated questionable venous prominence Ultrasound Doppler-negative for DVT Assessment: -Acute right lower extremity cellulitis below the knee, causing sepsis, POA improving -Acute metabolic encephalopathy likely from sepsis, corrected -Acute COPD exacerbation in an ex-smoker, improving -Chronic hypoxic respiratory failure on 3 L oxygen at home -Metastatic stage IV melanoma, patient is on directed chemo and immunotherapy. follows at [facility] -Diabetes mellitus type 2, chronically on insulin, uncontrolled with hypoglycemia -Essential hypertension -Hypothyroid -Morbid obesity BMI 43.9 -Persistent atrial fibrillation with increased ventricular rate on presentation,-Chronically on Xarelto Plan: Patient doing well with the current treatment plan. Switch to oral prednisone. On IV Ancef. No evidence of metastasis in the brain. Patient should be able to be discharged home tomorrow.
[2019-03-24 02:07] LABS: Glucose,Whole Blood 431 mg/dL (75-99)
[2019-03-24] MEDS: Trametinib Dimethyl Sulfoxide [Mekinist] PO SCH (06:48)
[2019-03-24] MEDS: TAFINLAR 75 MG PO SCH (06:48)
[2019-03-24 07:20] LABS: Glucose,Whole Blood 102 mg/dL (75-99)
[2019-03-24] MEDS: INSULIN ASPART (NovoLOG) 100 UNIT/ML VIAL SQ SCH ×2 (08:02→13:46)
[2019-03-24 08:07] LABS: African American GFR (CKD) >90 (>60 ml/min/1.73 sqM); Blood Urea Nitrogen 27 mg/dL (7-17); Calcium 8.1 mg/dL (8.4-10.2); Chloride 96 mmol/L (98-107); Glucose 81 mg/dL (74-99); Non-African American GFR(CKD) 89 (>60 ml/min/1.73 sqM); Potassium 3.9 mmol/L (3.5-5.1); Sodium 140 mmol/L (137-145)
[2019-03-24 08:14] LABS: Anion Gap 6 mmol/L; Carbon Dioxide 38 mmol/L (22-30)
[2019-03-24] MEDS: INSULIN DETEMIR (LEVEMIR) 100 UNIT/ML SYR SQ SCH (08:34)
[2019-03-24] MEDS: RIVAROXABAN 20 MG TAB PO SCH (08:34)
[2019-03-24] MEDS: FUROSEMIDE 40 MG TAB PO SCH (08:35)
[2019-03-24] MEDS: POTASSIUM CHLORIDE ER 20 MEQ TAB.ER PO SCH (08:35)
[2019-03-24] MEDS: ATORVASTATIN 40 MG TAB PO SCH (08:35)
[2019-03-24] MEDS: metFORMIN 500 MG TAB PO SCH (08:35)
[2019-03-24] MEDS: METOPROLOL SUCCINATE (ER) 100 MG TAB.ER.24H PO SCH (08:35)
[2019-03-24] MEDS: LOSARTAN 50 MG TAB PO SCH (08:35)
[2019-03-24] MEDS: GABAPENTIN 400 MG CAP PO SCH (08:36)
[2019-03-24] MEDS ORDERED: predniSONE 10 MG TAB PO SCH (09:00)
[2019-03-24] MEDS: FORMOTEROL FUMARATE 20 MCG/2 ML NEBU INHALATION SCH (09:25)
[2019-03-24] MEDS: BUDESONIDE 1 MG/2 ML NEBU INHALATION SCH (09:25)
[2019-03-24] MEDS: IPRATROPIUM-ALBUTEROL 3 ML NEB INHALATION SCH ×2 (09:25→13:50)
[2019-03-24 11:56] LABS: Glucose,Whole Blood 116 mg/dL (75-99)
[2019-03-24 12:29] VITALS: BP 123/75; PULSE 78; RESP 17; TEMP 97.7
--- NOTE | 2019-03-24 12:47 | P.PN ---
Subjective Progress Note Date: 03/24/19 Principal diagnosis: AMS, on treatment for melanoma In f/u today pt is tired but feeling better, thoughts are clearer, no fever, chest pain, nausea, pain. Objective - Vital Signs Vital signs: Vital Signs Temp 97.7 F 03/24/19 12:28 Pulse 78 03/24/19 12:28 Resp 17 03/24/19 12:28 BP 123/75 03/24/19 12:28 Pulse Ox 94 L 03/24/19 12:28 Intake & Output 03/23/19 03/24/19 03/24/19 18:59 06:59 18:59 Intake Total 80 100 240 Balance 80 100 240 Weight 131 kg Intake: Intake, IV Titration 100 Amount ceFAZolin 2 gm In Sodium 100 Chloride 0.9% 50 ml @ 100 mls/hr IVPB Q8HR [facility] Rx# :[id number] Oral 80 240 Other: Voiding Method Toilet Toilet Toilet # Voids 2 1 - Constitutional General appearance: Present: cooperative, no acute distress, obese - EENT Eyes: Present: anicteric sclerae, EOMI ENT: Present: hearing grossly normal - Respiratory Respiratory: bilateral: CTA - Cardiovascular Heart sounds: normal: S1, S2 Abnormal Heart Sounds: Absent: systolic murmur, diastolic murmur, rub, S3 Gallop, S4 Gallop, click, other - Peripheral edema leg Peripheral Edema: right: 3+ (lymphedema, melanoma), left: None - Gastrointestinal General gastrointestinal: Present: soft - Neurologic Neurologic: Present: CNII-XII intact - Musculoskeletal Musculoskeletal: Present: strength equal bilaterally - Psychiatric Psychiatric: Present: A&O x's 3, appropriate affect, intact judgment & insight - Labs CBC & Chem 7: 03/22/19 07:13 03/24/19 06:57 Labs: Abnormal Lab Results - Last 24 Hours (Table) 03/23/19 03/23/19 03/24/19 Range/Units 16:58 19:52 02:05 Chloride (98-107) mmol/L Carbon Dioxide (22-30) mmol/L BUN (7-17) mg/dL POC Glucose (mg/dL) 196 H 263 H 431 H (75-99) mg/dL Calcium (8.4-10.2) mg/dL 03/24/19 03/24/19 03/24/19 Range/Units 06:57 07:13 11:15 Chloride 96 L (98-107) mmol/L Carbon Dioxide 38 H (22-30) mmol/L BUN 27 H (7-17) mg/dL POC Glucose (mg/dL) 102 H 116 H (75-99) mg/dL Calcium 8.1 L (8.4-10.2) mg/dL Microbiology - Last 24 Hours (Table) 03/21/19 04:50 Blood Culture - Preliminary Blood No Growth after 72 hours - Imaging and Cardiology MRI - head: report reviewed Assessment and Plan (1) Metastatic melanoma Narrative/Plan: Patient's description of her current treatment she is on encorafenib and binmetinib. Patient is BRAF mutated to be on this medication. This is new treatment started in early Feb so, pt has recently had disease progression. Dr. Cross notes are summarized at the end of the document. Plan of care is to cont Braftovi/Maktovi. 2 doses held on presentation for acute condition. Not felt to be r/t treatment so, resumed. Doppler of RLE is negative for DVT CTA chest ordered, no evidence of PE. Pt will continue on current anticoagulation MRI brain shows no evidence of disease Current Visit: Yes Status: Chronic Priority: Medium Code(s): C79.9 - SECONDARY MALIGNANT NEOPLASM OF UNSPECIFIED SITE SNOMED Code(s): 410003501 (2) Atrial fibrillation Narrative/Plan: New onset, Cardiology consulted. Pt is on anticoagulation for Hx PE Thyroid studies reviewed, T3 low but, pt acutely ill, she is on levothyroxine. Recommend recheck in the near future and dose adjust accordingly. Current Visit: Yes Status: Acute Priority: High Code(s): I48.91 - UNSPECIFIED ATRIAL FIBRILLATION SNOMED Code(s): 66606293 (3) Hypoxia Narrative/Plan: Pt is O2 dependent, was not wearing O2 when found by family. O2 continuous, mentation better today Current Visit: Yes Status: Acute Priority: High Code(s): R09.02 - HYPOXEMIA SNOMED Code(s): 257152319 Plan: Summary of note from [facility] dated March 03, 2019-pt discharged from hospital February 19, 2019 after an 8 day stay for pneumonia. Patient did have a bronchoscopy with washings, no masses, no malignant cells. 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 Patient has only multiple in-transit metastases of the right lower extremity. She has had ipilimumab with development of pneumonitis, Pembrolizumab with disease progression, cryotherapy of the right calf, TVEC injections and now oral. Her last PET scan was dated 01/25/19, hypermetabolism in the left hilar area, this is continuing to be monitored as bronch and washings were negative for malignancy. Nodular soft tissue foci in the right calf similar to before.
--- NOTE | 2019-03-24 16:07 | P.PN ---
Progress Note - Text Progress Note Date: 03/24/19 REASON FOR FOLLOWUP: Right lower extremity cellulitis. INTERVAL HISTORY: The patient remains to be afebrile. The patient has been breathing comfortably. The patient denies having any chest pain. The patient did have Occasional cough no sputum. The patient denies nausea, no vomiting, no abdominal pain or pain to the right leg area. PHYSICAL EXAMINATION: Blood pressure 123/75 with a pulse of 74, temperature 97. She is 97% on 4 L nasal cannula. General description is an elderly female up in the chair in no distress. RESPIRATORY SYSTEM: Unlabored breathing. Clear to auscultation anteriorly. HEART: S1, S2. Regular rate and rhythm. ABDOMEN: Soft. No tenderness. Right leg is currently dressed up. No obvious drainage on the dressing. DIAGNOSTIC IMPRESSION AND PLAN: Patient with a fever, source likely right lower extremity cellulitis. The patient has shown overall clinical improvement on IV cefazolin. She will finish therapy with oral Keflex 500 mg by mouth every 8 hours for 7 days along with Curtis wrap to the leg to keep the swelling down. Continue with supportive care.
== END 2019-03-24 14:35 | disposition home or self-care (01) | DRG 871 ==
LOC: EC 23:26 → 4SSUR 03-20 00:44 → 5NMEDONC 03-22 09:43
PROVIDERS: ADMIT Hospitalist; ATTEND Hospitalist
DX: A41.9 Sepsis, unspecified organism (principal); G93.41 Metabolic encephalopathy; I48.19 Other persistent atrial fibrillation; J44.1 Chronic obstructive pulmonary disease with (acute) exacerbation; J96.11 Chronic respiratory failure with hypoxia; L03.115 Cellulitis of right lower limb; Z68.41 Body mass index [BMI] 40.0-44.9, adult; C79.2 Secondary malignant neoplasm of skin; C78.02 Secondary malignant neoplasm of left lung; C78.01 Secondary malignant neoplasm of right lung; C43.9 Malignant melanoma of skin, unspecified; E11.649 Type 2 diabetes mellitus with hypoglycemia without coma; I11.0 Hypertensive heart disease with heart failure; R65.20 Severe sepsis without septic shock; I50.9 Heart failure, unspecified; E03.9 Hypothyroidism, unspecified; E66.01 Morbid (severe) obesity due to excess calories; Z79.899 Other long term (current) drug therapy; Z99.81 Dependence on supplemental oxygen; Z79.4 Long term (current) use of insulin
CPT/HCPCS: 36415; 70553; 71045; 71046; 71275; 80048; 80053; 80306; 80320; 81001; 83735; 83880; 84145; 84443; 84481; 84484; 85025; 85610; 85730; 87040; 87502; 93005; 93306; 94640; 94644; 94760; 96361; 96374; 96375; 99291